=== PATIENT | male | born 1980 | race African-American/Black ===

== ENCOUNTER 2017-12-14 17:59 | Emergency (ER) | payer MEDICAID, SELFPAY ==
[2017-12-14] MEDS ORDERED: Aspirin 81 MG Tab.Chew PO ONE (18:10)
[2017-12-14] MEDS ORDERED: Sodium Chloride 0.9% 1,000 ML IV ONE (18:15)
[2017-12-14] MEDS ORDERED: Ketorolac 30 MG/ML SDV IVPUSH ONE (18:15)
--- NOTE | 2017-12-14 18:15 | EDM.PDOC ---
ED HPI GENERAL MEDICAL PROBLEM - General Chief Complaint: Chest Pain Stated Complaint: UNK ISSUES Time Seen by Provider: 12/14/17 18:09 Source of Information: Reports: Patient History Limitations: Reports: No Limitations - History of Present Illness INITIAL COMMENTS - FREE TEXT/NARRATIVE: HISTORY AND PHYSICAL: History of present illness: Patient reports that at approximately 8:30 this morning he started to develop some midsternal right-sided chest pain. As the day progressed on he states the pain became more bothersome with movement, walking and yawning. He denies any fever, chills, shortness of breath or cough. The chest pain does not radiate, denies any diaphoresis, nausea, vomiting. Denies any GI or symptoms. Review of systems: As per history of present illness and below otherwise all systems reviewed and negative. Past medical history: As per history of present illness and as reviewed below otherwise noncontributory. Surgical history: As per history of present illness and as reviewed below otherwise noncontributory. Social history: No reported history of drug or alcohol abuse. Family history: As per history of present illness and as reviewed below otherwise noncontributory. Physical exam: General: Well-developed and well-nourished 37-year-old -[place] male. Alert and oriented. Nontoxic appearing and in no acute distress. HEENT: Atraumatic, normocephalic, pupils equal and reactive bilaterally, negative for conjunctival pallor or scleral icterus, mucous membranes appear dry , throat clear, neck supple, nontender, trachea midline. No drooling or trismus noted. No meningeal signs Lungs: Clear to auscultation, breath sounds equal bilaterally, chest nontender. Heart: S1S2, regular rate and rhythm without overt murmur Abdomen: Soft, nondistended, nontender. Negative for masses or hepatosplenomegaly. Negative for costovertebral tenderness. Pelvis: Stable nontender. Genitourinary: Deferred. Rectal: Deferred. Skin: Intact, warm, dry. No lesions or rashes noted. Extremities: Atraumatic, negative for cords or calf pain. Neurovascular unremarkable. Neuro: Awake, alert, oriented. Cranial nerves II through XII unremarkable. Cerebellum unremarkable. Motor and sensory unremarkable throughout. Exam nonfocal. Notes: BUN/creatinine and creatinine are slightly elevated which is likely due to being dehydrated. I did give him 1 L of IV fluids. Other worries lab work is unremarkable. EKG shows normal sinus rhythm with a rate of 76. Vital signs are stable. Chest x-ray shows no acute findings. His information was shared with the patient. Patient will be discharged to home with supportive care measures. He voices understanding and is agreeable to plan of care. Denies any further questions at this time. Diagnostics: CBC, CMP, troponin, EKG, one view chest x-ray Therapeutics: Aspirin, Toradol, IV fluids Prescription: None Impression: Nonspecific Chest Pain Plan: 1. Today's lab work, EKG and chest x-ray are normal. 2. Please take Tylenol and/or Ibuprofen for your pain. 3. Increase your oral fluids as you appeared to be dehydrated today. 4. Follow up with your primary caregiver in the next 1-2 days. Return to the ED as needed and as discussed. Definitive disposition and diagnosis as appropriate pending reevaluation and review of above. Onset: Today Chest Pain Score (Numeric/FACES): 8 - Related Data Allergies Allergy/AdvReac Type Severity Reaction Status Date / Time No Known Allergies Allergy Verified 12/14/17 18:15 Home Meds: Home Meds . [No Known Home Meds] 12/14/17 [History] ED ROS GENERAL - Review of Systems Review Of Systems: ROS reveals no pertinent complaints other than HPI. ED EXAM, GENERAL - Physical Exam Exam: See Below (See dictation) Course - Vital Signs Last Recorded V/S: Last Vital Signs Temp 98.1 F 12/14/17 18:13 Pulse 72 12/14/17 18:56 Resp 16 12/14/17 18:56 BP 133/85 12/14/17 18:56 Pulse Ox 98 12/14/17 18:56 - Orders/Labs/Meds Orders: Active Orders 24 hr Category Date Time Status EKG Documentation Completion [RC] STAT Care 12/14/17 18:10 Active Chest 1V Frontal [CR] Stat Exams 12/14/17 18:10 Taken Labs: Laboratory Tests 12/14/17 12/14/17 Range/Units 18:05 18:05 WBC 5.69 (4.0-11.0) K/uL RBC 5.18 (4.50-5.90) M/uL Hgb 14.5 (13.0-17.0) g/dL Hct 42.8 (38.0-50.0) % MCV 82.6 (80.0-98.0) fL MCH 28.0 (27.0-32.0) pg MCHC 33.9 (31.0-37.0) g/dL RDW Std Deviation 40.3 (28.0-62.0) fl RDW Coeff of Pool 13 (11.0-15.0) % Plt Count 227 (150-400) K/uL MPV 10.30 (7.40-12.00) fL Neut % (Auto) 62.4 (48.0-80.0) % Lymph % (Auto) 21.4 (16.0-40.0) % [place] % (Auto) 14.9 (0.0-15.0) % Eos % (Auto) 1.1 (0.0-7.0) % Baso % (Auto) 0.2 (0.0-1.5) % Neut # (Auto) 3.6 (1.4-5.7) K/uL Lymph # (Auto) 1.2 (0.6-2.4) K/uL [place] # (Auto) 0.9 H (0.0-0.8) K/uL Eos # (Auto) 0.1 (0.0-0.7) K/uL Baso # (Auto) 0.0 (0.0-0.1) K/uL Nucleated RBC % 0.0 /100WBC Nucleated RBCs # 0 K/uL Sodium 139 (136-148) mmol/L Potassium 3.9 (3.5-5.1) mmol/L Chloride 104 (98-107) mmol/L Carbon Dioxide 29.6 (21.0-32.0) mmol/L BUN 19 H (7.0-18.0) mg/dL Creatinine 1.4 H (0.8-1.3) mg/dL Est Cr Clr Drug Dosing 68.54 mL/min Estimated GFR (MDRD) > 60.0 ml/min Glucose 93 (74-106) mg/dL Calcium 9.1 (8.5-10.1) mg/dL Total Bilirubin 0.5 (0.2-1.0) mg/dL AST 25 (15-37) IU/L ALT 41 (14-63) IU/L Alkaline Phosphatase 176 H (46-116) U/L Troponin I < 0.050 (0.000-0.056) ng/mL Total Protein 8.0 (6.4-8.2) g/dL Albumin 3.8 (3.4-5.0) g/dL Globulin 4.2 H (2.0-3.5) g/dL Albumin/Globulin Ratio 0.9 L (1.3-2.8) Meds: Medications Discontinued Medications Generic Name Dose Route Start Last Admin Trade Name Cruz PRN Reason Stop Dose Admin Aspirin 324 mg 12/14/17 18:10 12/14/17 18:22 Aspirin PO 12/14/17 18:11 324 mg ONETIME ONE Administration Sodium Chloride 1,000 mls @ 999 mls/hr 12/14/17 18:15 12/14/17 18:25 Normal Saline IV 12/14/17 19:15 999 mls/hr STAT ONE Administration Ketorolac Tromethamine 30 mg 12/14/17 18:15 12/14/17 18:21 Toradol IVPUSH 12/14/17 18:16 30 mg ONETIME ONE Administration Departure - Departure Time of Disposition: 19:28 Disposition: Home, Self-Care 01 Clinical Impression: Nonspecific chest pain Instructions: Nonspecific Chest Pain Forms: ED Department Discharge Additional Instructions: The following information is given to patients seen in the emergency department who are being discharged to home. This information is to outline your options for follow-up care. We provide all patients seen in our emergency department with a follow-up referral. The need for follow-up, as well as the timing and circumstances, are variable depending upon the specifics of your emergency department visit. If you don't have a primary care physician on staff, we will provide you with a referral. We always advise you to contact your personal physician following an emergency department visit to inform them of the circumstance of the visit and for follow-up with them and/or the need for any referrals to a consulting specialist. The emergency department will also refer you to a specialist when appropriate. This referral assures that you have the opportunity for follow-up care with a specialist. All of these measure are taken in an effort to provide you with optimal care, which includes your follow-up. Under all circumstances we always encourage you to contact your private physician who remains a resource for coordinating your care. When calling for follow-up care, please make the office aware that this follow-up is from your recent emergency room visit. If for any reason you are refused follow-up, please contact the [facility] Emergency Department at and asked to speak to the emergency department charge nurse. [facility] [address] [place] [id number] 1. Today's lab work, EKG and chest x-ray are normal. 2. Please take Tylenol and/or Ibuprofen for your pain. 3. Increase your oral fluids as you appeared to be dehydrated today. 4. Follow up with your primary caregiver in the next 1-2 days. Return to the ED as needed and as discussed. - My Orders Last 24 Hours: My Active Orders 12/14/17 18:10 EKG Documentation Completion [RC] STAT Chest 1V Frontal [CR] Stat - Assessment/Plan Last 24 Hours: My Active Orders 12/14/17 18:10 EKG Documentation Completion [RC] STAT Chest 1V Frontal [CR] Stat
[2017-12-14 18:43] LABS: CHLORIDE,CL 104 mmol/L (98-107); SODIUM,NA 139 mmol/L (136-148)
--- NOTE | 2017-12-17 15:08 | CR ---
EXAM DATE: 12/14/17 PATIENT'S AGE: 37 Patient: AYAAN QUIROZ Facility: [place], [place] Site . Site : 1980 Study: XRay Chest [id number] 6:57:38 PM Ordering Physician: Doctor Mcwilliams Final Report: INDICATION: Chest pain and SOB TECHNIQUE: Chest radiograph 1 view COMPARISON: None FINDINGS: Cardiovascular and mediastinum: The heart silhouette is normal in size and morphology. The mediastinum is normal in appearance. Lungs and pleural spaces: Both lungs are unremarkable in appearance. No sign of pleural effusion seen. No pneumothorax is identified. Bones and soft tissues: No significant findings. IMPRESSION: 1. No acute cardiopulmonary disease is seen. Dictated by Fermin Donnelly MD @ 12/14/2017 6:59:28 PM Dictated by: Fermin Donnelly MD @ 12/14/2017 18:59:36 (Electronic Signature) Report Signed by Proxy. GUSTAVO
== END 2017-12-14 19:47 | disposition home or self-care (01) ==
LOC: MW.ED 17:59
DX: R07.89 Other chest pain (principal)
CPT/HCPCS: 36415; 71045; 80053; 84484; 85025; 93005; 96361; 96374; 99285; A9270; J1885; J7040; 99283

== ENCOUNTER 2018-02-02 02:03 | Inpatient (IN) | payer MEDICAID ==
[2018-02-02] MEDS ORDERED: Sodium Chloride 0.9% 2.5 ML Syringe FLUSH PRN ×2 (02:08)
[2018-02-02] MEDS ORDERED: Sodium Chloride 0.9% 10 ML Syringe FLUSH PRN (02:08)
[2018-02-02] MEDS ORDERED: Sodium Chloride 0.9% 1,000 ML IV ONE (02:08)
--- NOTE | 2018-02-02 02:08 | EDM.PDOC ---
ED HPI GENERAL MEDICAL PROBLEM - General Stated Complaint: BACK PAIN Time Seen by Provider: 02/02/18 02:07 Source of Information: Reports: Patient History Limitations: Reports: No Limitations - History of Present Illness INITIAL COMMENTS - FREE TEXT/NARRATIVE: HISTORY AND PHYSICAL: History of present illness: 37-year-old male presenting to emergency department by ambulance secondary to back pain and shortness of breath. Patient states that he has had intermittent back pain since this last Sunday. States that the pain is sharp and has been intermittent. He has been taking ibuprofen and Tylenol for this. Tonight states that pain became more severe and he began to have shortness of breath associated with it so called EMS. Denies any heart palpitations or diaphoresis. Pain is mostly in the left upper back. He denies any history of kidney stones or hematuria. Does admit to last week having some more urgency but no pain with urination. Currently his pain is 5 out of 10 and located primarily in his left flank. He denies any hemoptysis with his shortness of breath. Denies any history of coagulation disorders or blood clots. In general he is healthy and takes no regular medications. He has no known allergies. On exam patient has left CVA tenderness. No other significant abnormalities. CBC, INR, troponin, lipase unremarkable CMP shows mild increase in creatinine to 1.4 normal GFR D-dimer was elevated at 0.95. Spiral CT chest ordered secondary to patient's complaint of shortness of breath as well as chest/back pain CT abdomen showed small left pleural effusion with consolidation of the left lung base most likely secondary to atelectasis but pneumonia not able to be ruled out. They did recommend repeat radiographs as follow-up. In addition there was small bowel in the left flank and epigastrium that was mildly dilated measuring up to 3 cm with a transition point suspected in the left flank. Recommended clinical imaging follow-up to exclude small bowel obstruction. -This is also where the patient is having his pain Incidental finding of an umbilical hernia present containing small bowel without causing obstruction. CT angiogram showed no evidence of PE however there was a left pleural effusion and groundglass atelectasis with patchy consolidation most likely representing atelectasis. Secondary to above I do believe the patient is splinting secondary pain from suspected small bowel obstruction left flank area causing atelectasis. I did call Dr. Alvarado, general surgery, and discussed the case with him. He agreed patient most likely does need further evaluation for small bowel obstruction. He will see the patient this morning. Also called hospitalist, Dr. Dumont, and advised him of the patient and he agreed for admission for suspected small bowel obstruction. Review of systems: As per history of present illness and below otherwise all systems reviewed and negative. Past medical history: As per history of present illness and as reviewed below otherwise noncontributory. Surgical history: As per history of present illness and as reviewed below otherwise noncontributory. Social history: No reported history of drug or alcohol abuse. Family history: As per history of present illness and as reviewed below otherwise noncontributory. Physical exam: HEENT: Atraumatic, normocephalic, pupils reactive, negative for conjunctival pallor or scleral icterus, mucous membranes moist, throat clear, neck supple, nontender, trachea midline. Lungs: Clear to auscultation, breath sounds equal bilaterally, chest nontender. Heart: S1S2, regular, negative for clicks, rubs, or JVD. Abdomen: Soft, nondistended, nontender. Negative for masses or hepatosplenomegaly. Left costovertebral tenderness. Pelvis: Stable nontender. Genitourinary: Deferred. Rectal: Deferred. Extremities: Atraumatic, negative for cords or calf pain. Neurovascular unremarkable. Neuro: Awake, alert, oriented. Cranial nerves II through XII unremarkable. Cerebellum unremarkable. Motor and sensory unremarkable throughout. Exam nonfocal. Diagnostics: CBC, CMP, INR, d-dimer, chest x-ray, EKG, CT abdomen and pelvis, spiral CT chest Therapeutics: 1 L normal saline, 2 mg IV morphine 1, nothing by mouth Impression: CVA tenderness left Shortness of breath Suspected small bowel obstruction Plan: Please see above H&P. Patient was admitted for suspected small bowel obstruction. Definitive disposition and diagnosis as appropriate pending reevaluation and review of above. left flank Pain Score (Numeric/FACES): 10 - Related Data Allergies Allergy/AdvReac Type Severity Reaction Status Date / Time No Known Allergies Allergy Verified 02/02/18 02:11 Home Meds: Home Meds . [No Known Home Meds] 12/14/17 [History] Past Medical History - Past Health History Medical/Surgical History: Denies Medical/Surgical History - Past Surgical History Musculoskeletal Surgical History: Reports: Other (See Below) Other Musculoskeletal Surgeries/Procedures:: left arm surgery Social & Family History - Family History Family Medical History: Noncontributory - Caffeine Use Caffeine Use: Reports: None ED ROS GENERAL - Review of Systems Review Of Systems: ROS reveals no pertinent complaints other than HPI. ED EXAM, GENERAL - Physical Exam Exam: See Below Course - Vital Signs Last Recorded V/S: Last Vital Signs Temp 98.8 F 02/02/18 02:11 Pulse 67 02/02/18 04:51 Resp 14 02/02/18 04:51 BP 146/92 H 02/02/18 04:51 Pulse Ox 98 02/02/18 04:51 - Orders/Labs/Meds Orders: Active Orders 24 hr Category Date Time Status Admission Status [Patient Status] [ADT] Stat ADT 02/02/18 04:38 Active EKG Documentation Completion [RC] STAT Care 02/02/18 02:08 Active Abdomen Pelvis wo Cont [CT] Stat Exams 02/02/18 02:51 Taken Chest 1V Frontal [CR] Stat Exams 02/02/18 02:08 Taken Chest PE [Ang Chest] [CT] Stat Exams 02/02/18 03:19 Taken CULTURE URINE [RM] Stat Lab 02/02/18 02:09 Received Sodium Chloride 0.9% [Saline Flush] Med 02/02/18 02:08 Active 10 ml FLUSH ASDIRECTED PRN Sodium Chloride 0.9% [Saline Flush] Med 02/02/18 02:08 Active 2.5 ml FLUSH ASDIRECTED PRN Sodium Chloride 0.9% [Saline Flush] Med 02/02/18 02:08 Active 2.5 ml FLUSH ASDIRECTED PRN Saline Lock Insert [OM.PC] Stat Oth 02/02/18 02:08 Ordered Medication Orders Sodium Chloride (Saline Flush) 2.5 ml FLUSH ASDIRECTED PRN PRN Reason: Keep Vein Open Last Admin: 02/02/18 02:35 Dose: 2.5 ml Sodium Chloride (Saline Flush) 10 ml FLUSH ASDIRECTED PRN PRN Reason: Keep Vein Open Last Admin: 02/02/18 02:35 Dose: 10 ml Sodium Chloride (Saline Flush) 2.5 ml FLUSH ASDIRECTED PRN PRN Reason: Keep Vein Open Last Admin: 02/02/18 02:35 Dose: 2.5 ml Labs: Laboratory Tests 02/02/18 02/02/18 02/02/18 Range/Units 02:09 02:17 02:17 WBC 5.10 (4.0-11.0) K/uL RBC 5.20 (4.50-5.90) M/uL Hgb 14.6 (13.0-17.0) g/dL Hct 42.7 (38.0-50.0) % MCV 82.1 (80.0-98.0) fL MCH 28.1 (27.0-32.0) pg MCHC 34.2 (31.0-37.0) g/dL RDW Std Deviation 40.7 (28.0-62.0) fl RDW Coeff of Pool 14 (11.0-15.0) % Plt Count 203 (150-400) K/uL MPV 10.10 (7.40-12.00) fL Neut % (Auto) 49.6 (48.0-80.0) % Lymph % (Auto) 40.0 (16.0-40.0) % [place] % (Auto) 8.0 (0.0-15.0) % Eos % (Auto) 2.0 (0.0-7.0) % Baso % (Auto) 0.4 (0.0-1.5) % Neut # (Auto) 2.5 (1.4-5.7) K/uL Lymph # (Auto) 2.0 (0.6-2.4) K/uL [place] # (Auto) 0.4 (0.0-0.8) K/uL Eos # (Auto) 0.1 (0.0-0.7) K/uL Baso # (Auto) 0.0 (0.0-0.1) K/uL Nucleated RBC % 0.0 /100WBC Nucleated RBCs # 0 K/uL INR 1.01 D-Dimer, Quantitative 0.95 H (0.0-0.52) mg/LFEU Sodium (136-148) mmol/L Potassium (3.5-5.1) mmol/L Chloride (98-107) mmol/L Carbon Dioxide (21.0-32.0) mmol/L BUN (7.0-18.0) mg/dL Creatinine (0.8-1.3) mg/dL Est Cr Clr Drug Dosing mL/min Estimated GFR (MDRD) ml/min Glucose (74-106) mg/dL Calcium (8.5-10.1) mg/dL Total Bilirubin (0.2-1.0) mg/dL AST (15-37) IU/L ALT (14-63) IU/L Alkaline Phosphatase (46-116) U/L Troponin I (0.000-0.056) ng/mL Total Protein (6.4-8.2) g/dL Albumin (3.4-5.0) g/dL Globulin (2.0-3.5) g/dL Albumin/Globulin Ratio (1.3-2.8) Lipase (73-393) U/L Urine Color YELLOW Urine Appearance CLEAR Urine pH 5.5 (5.0-8.0) Ur Specific [place] <= 1.005 (1.001-1.035) Urine Protein NEGATIVE (NEGATIVE) mg/dL Urine Glucose (UA) NEGATIVE (NEGATIVE) mg/dL Urine Ketones NEGATIVE (NEGATIVE) mg/dL Urine Occult Blood NEGATIVE (NEGATIVE) Urine Nitrite NEGATIVE (NEGATIVE) Urine Bilirubin NEGATIVE (NEGATIVE) Urine Urobilinogen 0.2 (<2.0) EU/dL Ur Leukocyte Esterase NEGATIVE (NEGATIVE) Urine RBC 0-1 (0-2/HPF) Urine WBC NONE SEEN (0-5/HPF) Ur Epithelial Cells RARE (NONE-FEW) Urine Bacteria RARE (NEGATIVE) 02/02/18 Range/Units 02:17 WBC (4.0-11.0) K/uL RBC (4.50-5.90) M/uL Hgb (13.0-17.0) g/dL Hct (38.0-50.0) % MCV (80.0-98.0) fL MCH (27.0-32.0) pg MCHC (31.0-37.0) g/dL RDW Std Deviation (28.0-62.0) fl RDW Coeff of Pool (11.0-15.0) % Plt Count (150-400) K/uL MPV (7.40-12.00) fL Neut % (Auto) (48.0-80.0) % Lymph % (Auto) (16.0-40.0) % [place] % (Auto) (0.0-15.0) % Eos % (Auto) (0.0-7.0) % Baso % (Auto) (0.0-1.5) % Neut # (Auto) (1.4-5.7) K/uL Lymph # (Auto) (0.6-2.4) K/uL [place] # (Auto) (0.0-0.8) K/uL Eos # (Auto) (0.0-0.7) K/uL Baso # (Auto) (0.0-0.1) K/uL Nucleated RBC % /100WBC Nucleated RBCs # K/uL INR D-Dimer, Quantitative (0.0-0.52) mg/LFEU Sodium 139 (136-148) mmol/L Potassium 3.9 (3.5-5.1) mmol/L Chloride 102 (98-107) mmol/L Carbon Dioxide 28.9 (21.0-32.0) mmol/L BUN 11 (7.0-18.0) mg/dL Creatinine 1.4 H (0.8-1.3) mg/dL Est Cr Clr Drug Dosing 68.54 mL/min Estimated GFR (MDRD) > 60.0 ml/min Glucose 110 H (74-106) mg/dL Calcium 9.2 (8.5-10.1) mg/dL Total Bilirubin 0.7 (0.2-1.0) mg/dL AST 11 L (15-37) IU/L ALT 25 (14-63) IU/L Alkaline Phosphatase 130 H (46-116) U/L Troponin I < 0.050 (0.000-0.056) ng/mL Total Protein 8.0 (6.4-8.2) g/dL Albumin 4.0 (3.4-5.0) g/dL Globulin 4.0 H (2.0-3.5) g/dL Albumin/Globulin Ratio 1.0 L (1.3-2.8) Lipase 296 (73-393) U/L Urine Color Urine Appearance Urine pH (5.0-8.0) Ur Specific [place] (1.001-1.035) Urine Protein (NEGATIVE) mg/dL Urine Glucose (UA) (NEGATIVE) mg/dL Urine Ketones (NEGATIVE) mg/dL Urine Occult Blood (NEGATIVE) Urine Nitrite (NEGATIVE) Urine Bilirubin (NEGATIVE) Urine Urobilinogen (<2.0) EU/dL Ur Leukocyte Esterase (NEGATIVE) Urine RBC (0-2/HPF) Urine WBC (0-5/HPF) Ur Epithelial Cells (NONE-FEW) Urine Bacteria (NEGATIVE) Meds: Medications Generic Name Dose Route Start Last Admin Trade Name Cruz PRN Reason Stop Dose Admin Sodium Chloride 2.5 ml 02/02/18 02:08 02/02/18 02:35 Saline Flush FLUSH 2.5 ml ASDIRECTED PRN Administration Keep Vein Open Sodium Chloride 10 ml 02/02/18 02:08 02/02/18 02:35 Saline Flush FLUSH 10 ml ASDIRECTED PRN Administration Keep Vein Open Sodium Chloride 2.5 ml 02/02/18 02:08 02/02/18 02:35 Saline Flush FLUSH 2.5 ml ASDIRECTED PRN Administration Keep Vein Open Discontinued Medications Generic Name Dose Route Start Last Admin Trade Name Cruz PRN Reason Stop Dose Admin Sodium Chloride 1,000 mls @ 999 mls/hr 02/02/18 02:08 02/02/18 02:34 Normal Saline IV 02/02/18 03:08 999 mls/hr BOLUS ONE Administration Iopamidol 50 ml 02/02/18 04:03 02/02/18 04:04 Isovue Multipack-370 (76%) IVPUSH 02/02/18 04:04 50 ml ONETIME ONE Administration Morphine Sulfate 2 mg 02/02/18 03:19 02/02/18 03:24 Morphine IVPUSH 02/02/18 03:20 2 mg ONETIME ONE Administration Departure - Departure Time of Disposition: 05:06 Disposition: Admitted As Inpatient 64 Condition: Fair Clinical Impression: CVA tenderness, Small bowel obstruction, Nausea without vomiting - Discharge Information Referrals: PCP,None [Primary Care Provider] - - My Orders Last 24 Hours: My Active Orders 02/02/18 02:08 EKG Documentation Completion [RC] STAT Chest 1V Frontal [CR] Stat Sodium Chloride 0.9% [Saline Flush] 10 ml FLUSH ASDIRECTED PRN Sodium Chloride 0.9% [Saline Flush] 2.5 ml FLUSH ASDIRECTED PRN Sodium Chloride 0.9% [Saline Flush] 2.5 ml FLUSH ASDIRECTED PRN Saline Lock Insert [OM.PC] Stat 02/02/18 02:09 CULTURE URINE [RM] Stat 02/02/18 02:51 Abdomen Pelvis wo Cont [CT] Stat 02/02/18 03:19 Chest PE [Ang Chest] [CT] Stat 02/02/18 04:38 Admission Status [Patient Status] [ADT] Stat - Assessment/Plan Last 24 Hours: My Active Orders 02/02/18 02:08 EKG Documentation Completion [RC] STAT Chest 1V Frontal [CR] Stat Sodium Chloride 0.9% [Saline Flush] 10 ml FLUSH ASDIRECTED PRN Sodium Chloride 0.9% [Saline Flush] 2.5 ml FLUSH ASDIRECTED PRN Sodium Chloride 0.9% [Saline Flush] 2.5 ml FLUSH ASDIRECTED PRN Saline Lock Insert [OM.PC] Stat 02/02/18 02:09 CULTURE URINE [RM] Stat 02/02/18 02:51 Abdomen Pelvis wo Cont [CT] Stat 02/02/18 03:19 Chest PE [Ang Chest] [CT] Stat 02/02/18 04:38 Admission Status [Patient Status] [ADT] Stat
[2018-02-02 02:47] LABS: CHLORIDE,CL 102 mmol/L (98-107); SODIUM,NA 139 mmol/L (136-148)
[2018-02-02] MEDS ORDERED: Morphine 2 MG/ML Syringe IVPUSH ONE (03:19)
[2018-02-02] MEDS ORDERED: Iopamidol 755 MG/ML 200 ML Multipack Bottle IVPUSH ONE (04:03)
[2018-02-02] MEDS ORDERED: Morphine 2 MG/ML Syringe IVPUSH PRN (08:30)
[2018-02-02] MEDS ORDERED: Ondansetron 4 MG Tab.DIS PO PRN (08:30)
--- NOTE | 2018-02-02 08:58 | PCM.HP ---
H&P History of Present Illness - General Date of Service: 02/02/18 Admit Problem/Dx: Admission Diagnosis/Problem Admission Diagnosis/Problem Small bowel obstruction Source of Information: Patient, Family History Limitations: Reports: No Limitations - History of Present Illness Initial Comments - Free Text/Narative: The patient is an otherwise healthy 37-year-old gentleman who has presented to the emergency department early this morning with a complaint of left-sided flank pain and abdominal pain. The patient says that he has had the pain for approximately one week. The patient also says that the pain is crampy in nature and does not radiate. The patient also denies diarrhea or constipation however he has been able to pass gas. The patient has no nausea or vomiting. He has been in good health up to the present time and he does not take any medications chronically. They have been no specific aggravating or relieving factors. Onset of Symptoms: Reports: Gradual Duration of Symptoms: Reports: Day(s):, Intermittent Location: Reports: Abdomen Quality: Reports: Dull, Other (Cramping) Severity: Moderate Improves with: Reports: Medication Worsens with: Reports: None Associated Symptoms: Reports: No Other Symptoms left flank Pain Score (Numeric/FACES): 10 - Related Data Allergies/Adverse Reactions: Allergies Allergy/AdvReac Type Severity Reaction Status Date / Time No Known Allergies Allergy Verified 02/02/18 02:11 Home Medications: Home Meds . [No Known Home Meds] 12/14/17 [History] Past Medical History - Past Health History Medical/Surgical History: Denies Medical/Surgical History HEENT History: Reports: None Cardiovascular History: Reports: None Respiratory History: Reports: None Gastrointestinal History: Reports: None Genitourinary History: Reports: None Musculoskeletal History: Reports: None Neurological History: Reports: None Psychiatric History: Reports: None Endocrine/Metabolic History: Reports: None Hematologic History: Reports: None Oncologic (Cancer) History: Reports: None Dermatologic History: Reports: None - Infectious Disease History Infectious Disease History: Reports: None - Past Surgical History Musculoskeletal Surgical History: Reports: Other (See Below) Other Musculoskeletal Surgeries/Procedures:: left arm surgery Social & Family History - Family History Family Medical History: Noncontributory - Tobacco Use Smoking Status *Q: Never Smoker - Caffeine Use Caffeine Use: Reports: None - Recreational Drug Use Recreational Drug Use: No - Living Situation & Occupation Living situation: Reports: , with Spouse Occupation: Employed H&P Review of Systems - Review of Systems: Review Of Systems: See Below General: Reports: Decreased Appetite HEENT: Reports: No Symptoms Pulmonary: Reports: Shortness of Breath Cardiovascular: Reports: No Symptoms Gastrointestinal: Reports: Abdominal Pain, Decreased Appetite Genitourinary: Reports: No Symptoms Musculoskeletal: Reports: No Symptoms Skin: Reports: No Symptoms Psychiatric: Reports: No Symptoms Neurological: Reports: No Symptoms Hematologic/Lymphatic: Reports: No Symptoms Immunologic: Reports: No Symptoms Exam - Exam Exam: See Below - Vital Signs Vital Signs: Last Vital Signs Temp 36.4 C 02/02/18 07:16 Pulse 60 02/02/18 07:16 Resp 14 02/02/18 07:16 BP 140/83 02/02/18 07:16 Pulse Ox 98 02/02/18 07:16 Weight: 80.739 kg - Exam Quality Assessment: No: Supplemental Oxygen General: Alert, Oriented, Cooperative, Mild Distress HEENT: Conjunctiva Clear, EACs Clear, EOMI, Mucosa Moist & [place], Nares Patent, Pupils Equal, Pupils Reactive Neck: Supple, Trachea Midline. No: Lymphadenopathy, Thyromegaly Lungs: Clear to Auscultation, Normal Respiratory Effort Cardiovascular: Regular Rate, Regular Rhythm, Normal S1, Normal S2 GI/Abdominal Exam: Normal Bowel Sounds, Soft, Non-Tender, No Organomegaly, No Distention, No Mass, Hernia (Umbilical, asymptomatic). No: Guarding, Rigid, Rebound (Male) Exam: Deferred Rectal (Males) Exam: Deferred Back Exam: Normal Inspection, Full Range of Motion Extremities: Normal Inspection, Normal Range of Motion, Non-Tender, No Pedal Edema Skin: Warm, Dry, Intact Neurological: Cranial Nerves Intact Neuro Extensive - Mental Status: Alert, Oriented x3, Normal Mood/Affect Neuro Extensive - Motor, Sensory, Reflexes: CN II-XII Intact, Normal Gait Psychiatric: Alert, Normal Affect, Normal Mood - Patient Data Lab Results Last 24 hrs: Laboratory Results - last 24 hr 02/02/18 02/02/18 02/02/18 Range/Units 02:09 02:17 02:17 WBC 5.10 (4.0-11.0) K/uL RBC 5.20 (4.50-5.90) M/uL Hgb 14.6 (13.0-17.0) g/dL Hct 42.7 (38.0-50.0) % MCV 82.1 (80.0-98.0) fL MCH 28.1 (27.0-32.0) pg MCHC 34.2 (31.0-37.0) g/dL RDW Std Deviation 40.7 (28.0-62.0) fl RDW Coeff of Pool 14 (11.0-15.0) % Plt Count 203 (150-400) K/uL MPV 10.10 (7.40-12.00) fL Neut % (Auto) 49.6 (48.0-80.0) % Lymph % (Auto) 40.0 (16.0-40.0) % [place] % (Auto) 8.0 (0.0-15.0) % Eos % (Auto) 2.0 (0.0-7.0) % Baso % (Auto) 0.4 (0.0-1.5) % Neut # (Auto) 2.5 (1.4-5.7) K/uL Lymph # (Auto) 2.0 (0.6-2.4) K/uL [place] # (Auto) 0.4 (0.0-0.8) K/uL Eos # (Auto) 0.1 (0.0-0.7) K/uL Baso # (Auto) 0.0 (0.0-0.1) K/uL Nucleated RBC % 0.0 /100WBC Nucleated RBCs # 0 K/uL INR 1.01 D-Dimer, Quantitative 0.95 H (0.0-0.52) mg/LFEU Sodium (136-148) mmol/L Potassium (3.5-5.1) mmol/L Chloride (98-107) mmol/L Carbon Dioxide (21.0-32.0) mmol/L BUN (7.0-18.0) mg/dL Creatinine (0.8-1.3) mg/dL Est Cr Clr Drug Dosing mL/min Estimated GFR (MDRD) ml/min Glucose (74-106) mg/dL Calcium (8.5-10.1) mg/dL Total Bilirubin (0.2-1.0) mg/dL AST (15-37) IU/L ALT (14-63) IU/L Alkaline Phosphatase (46-116) U/L Troponin I (0.000-0.056) ng/mL Total Protein (6.4-8.2) g/dL Albumin (3.4-5.0) g/dL Globulin (2.0-3.5) g/dL Albumin/Globulin Ratio (1.3-2.8) Lipase (73-393) U/L Urine Color YELLOW Urine Appearance CLEAR Urine pH 5.5 (5.0-8.0) Ur Specific [place] <= 1.005 (1.001-1.035) Urine Protein NEGATIVE (NEGATIVE) mg/dL Urine Glucose (UA) NEGATIVE (NEGATIVE) mg/dL Urine Ketones NEGATIVE (NEGATIVE) mg/dL Urine Occult Blood NEGATIVE (NEGATIVE) Urine Nitrite NEGATIVE (NEGATIVE) Urine Bilirubin NEGATIVE (NEGATIVE) Urine Urobilinogen 0.2 (<2.0) EU/dL Ur Leukocyte Esterase NEGATIVE (NEGATIVE) Urine RBC 0-1 (0-2/HPF) Urine WBC NONE SEEN (0-5/HPF) Ur Epithelial Cells RARE (NONE-FEW) Urine Bacteria RARE (NEGATIVE) 02/02/18 Range/Units 02:17 WBC (4.0-11.0) K/uL RBC (4.50-5.90) M/uL Hgb (13.0-17.0) g/dL Hct (38.0-50.0) % MCV (80.0-98.0) fL MCH (27.0-32.0) pg MCHC (31.0-37.0) g/dL RDW Std Deviation (28.0-62.0) fl RDW Coeff of Pool (11.0-15.0) % Plt Count (150-400) K/uL MPV (7.40-12.00) fL Neut % (Auto) (48.0-80.0) % Lymph % (Auto) (16.0-40.0) % [place] % (Auto) (0.0-15.0) % Eos % (Auto) (0.0-7.0) % Baso % (Auto) (0.0-1.5) % Neut # (Auto) (1.4-5.7) K/uL Lymph # (Auto) (0.6-2.4) K/uL [place] # (Auto) (0.0-0.8) K/uL Eos # (Auto) (0.0-0.7) K/uL Baso # (Auto) (0.0-0.1) K/uL Nucleated RBC % /100WBC Nucleated RBCs # K/uL INR D-Dimer, Quantitative (0.0-0.52) mg/LFEU Sodium 139 (136-148) mmol/L Potassium 3.9 (3.5-5.1) mmol/L Chloride 102 (98-107) mmol/L Carbon Dioxide 28.9 (21.0-32.0) mmol/L BUN 11 (7.0-18.0) mg/dL Creatinine 1.4 H (0.8-1.3) mg/dL Est Cr Clr Drug Dosing 68.54 mL/min Estimated GFR (MDRD) > 60.0 ml/min Glucose 110 H (74-106) mg/dL Calcium 9.2 (8.5-10.1) mg/dL Total Bilirubin 0.7 (0.2-1.0) mg/dL AST 11 L (15-37) IU/L ALT 25 (14-63) IU/L Alkaline Phosphatase 130 H (46-116) U/L Troponin I < 0.050 (0.000-0.056) ng/mL Total Protein 8.0 (6.4-8.2) g/dL Albumin 4.0 (3.4-5.0) g/dL Globulin 4.0 H (2.0-3.5) g/dL Albumin/Globulin Ratio 1.0 L (1.3-2.8) Lipase 296 (73-393) U/L Urine Color Urine Appearance Urine pH (5.0-8.0) Ur Specific [place] (1.001-1.035) Urine Protein (NEGATIVE) mg/dL Urine Glucose (UA) (NEGATIVE) mg/dL Urine Ketones (NEGATIVE) mg/dL Urine Occult Blood (NEGATIVE) Urine Nitrite (NEGATIVE) Urine Bilirubin (NEGATIVE) Urine Urobilinogen (<2.0) EU/dL Ur Leukocyte Esterase (NEGATIVE) Urine RBC (0-2/HPF) Urine WBC (0-5/HPF) Ur Epithelial Cells (NONE-FEW) Urine Bacteria (NEGATIVE) Result Diagrams: 02/02/18 02:17 02/02/18 02:17 - Problem List (1) Small bowel obstruction, partial SNOMED Code(s): 136557720 ICD Code: K56.600 - PARTIAL INTESTINAL OBSTRUCTION, UNSPECIFIED TO CAUSE Status: Acute Priority: High Current Visit: Yes (2) Nausea without vomiting SNOMED Code(s): 887834827, 183932338 ICD Code: R11.0 - NAUSEA Status: Acute Priority: Medium Current Visit: Yes (3) Nonspecific chest pain SNOMED Code(s): 04727738 ICD Code: R07.9 - CHEST PAIN, UNSPECIFIED Status: Acute Priority: High Current Visit: Yes Problem List Initiated/Reviewed/Updated: Yes Orders Last 24hrs: Active Orders 24 hr Category Date Time Status Patient Status [ADT] Routine ADT 02/02/18 08:30 Active EKG Documentation Completion [RC] STAT Care 02/02/18 02:08 Active Notify Provider Consults [RC] ASDIRECTED Care 02/02/18 08:33 Active Oxygen Therapy [RC] PRN Care 02/02/18 08:30 Active Up ad Mary [RC] ASDIRECTED Care 02/02/18 08:30 Active VTE/DVT Education [RC] PER UNIT ROUTINE Care 02/02/18 08:30 Active Vital Signs [RC] Q4H Care 02/02/18 08:30 Active Consult to Physician [CONS] Routine Cons 02/02/18 08:30 Active Nothing per Oral Now Diet [DIET] Diet 02/02/18 Breakfast Active Abdomen 1V Flat [CR] AM Exams 02/03/18 05:11 Ordered Abdomen Pelvis wo Cont [CT] Stat Exams 02/02/18 02:51 Taken Chest 1V Frontal [CR] Stat Exams 02/02/18 02:08 Taken Chest PE [Ang Chest] [CT] Stat Exams 02/02/18 03:19 Taken CBC WITH AUTO DIFF [HEME] AM Lab 02/03/18 05:11 Ordered COMPREHENSIVE METABOLIC PN,CMP [CHEM] AM Lab 02/03/18 05:11 Ordered CULTURE URINE [RM] Stat Lab 02/02/18 02:09 Received Enoxaparin [Lovenox] Med 02/02/18 08:30 Active 40 mg SUBCUT Q24H Morphine Med 02/02/18 08:30 Active 2 mg IVPUSH Q2H PRN Ondansetron [Zofran ODT] Med 02/02/18 08:30 Active 4 mg PO Q6H PRN Sodium Chloride 0.9% [Normal Saline] 1,000 ml Med 02/02/18 08:30 Active IV ASDIRECTED Sodium Chloride 0.9% [Saline Flush] Med 02/02/18 02:08 Active 10 ml FLUSH ASDIRECTED PRN Sodium Chloride 0.9% [Saline Flush] Med 02/02/18 02:08 Active 2.5 ml FLUSH ASDIRECTED PRN Sodium Chloride 0.9% [Saline Flush] Med 02/02/18 02:08 Active 2.5 ml FLUSH ASDIRECTED PRN NG [Nasogastric Orogastric Tube Insertion] [OM.PC] Ot 02/02/18 08:36 Ordered Routine Saline Lock Insert [OM.PC] Stat Ot 02/02/18 02:08 Ordered Resuscitation Status Routine Resus Stat 02/02/18 08:30 Ordered Medication Orders Enoxaparin Sodium (Lovenox) 40 mg SUBCUT Q24H SUPRIYA Sodium Chloride (Normal Saline) 1,000 mls @ 125 mls/hr IV ASDIRECTED SUPRIYA Morphine Sulfate (Morphine) 2 mg IVPUSH Q2H PRN PRN Reason: Pain (severe 7-10) Stop: 02/03/18 08:32 Ondansetron HCl (Zofran Odt) 4 mg PO Q6H PRN PRN Reason: nausea, able to take PO Sodium Chloride (Saline Flush) 2.5 ml FLUSH ASDIRECTED PRN PRN Reason: Keep Vein Open Last Admin: 02/02/18 02:35 Dose: 2.5 ml Sodium Chloride (Saline Flush) 10 ml FLUSH ASDIRECTED PRN PRN Reason: Keep Vein Open Last Admin: 02/02/18 02:35 Dose: 10 ml Sodium Chloride (Saline Flush) 2.5 ml FLUSH ASDIRECTED PRN PRN Reason: Keep Vein Open Last Admin: 02/02/18 02:35 Dose: 2.5 ml Assessment/Plan Comment:: The patient is a 37-year-old gentleman who has been healthy up to this present illness. CT scan has been suggestive of small bowel obstruction however, the patient has been able to pass flatus therefore this is likely a partial small bowel obstruction. The patient's abdominal examination today is also completely benign. NG tube previously order has been discontinued. The patient will be started on clear liquids. I have consulted surgeon. I suspect that the patient' s chest pain is related to small bowel obstruction and he has been unable to take a deep breath. Incentive spirometry has been ordered. This should resolve spontaneously. The patient should be appropriate for discharge possibly tomorrow if he is asymptomatic. We'll consider Gastrografin small bowel follow- through if necessary. This can also be done as an outpatient if necessary. The patient has been encouraged to ambulate. Repeat laboratory tests been ordered for the morning. Repeat abdominal x-ray has also been ordered for the morning.
[2018-02-02] MEDS: Sodium Chloride 0.9% 1,000 ML IV SCH ×2 (09:23→17:16)
[2018-02-02] MEDS: Enoxaparin 40 MG/0.4 ML Syringe SUBCUT SCH (09:27)
--- NOTE | 2018-02-02 09:28 | PCM.CONS ---
H&P History of Present Illness - General Date of Service: 02/02/18 Admit Problem/Dx: Admission Diagnosis/Problem Admission Diagnosis/Problem Small bowel obstruction Source of Information: Patient, Family History Limitations: Reports: No Limitations - History of Present Illness Symptom Onset Date: 02/01/18 Duration of Symptoms: Reports: Hour(s):, Chronic, Recurring Location: Reports: Abdomen Quality: Reports: Pressure, Throbbing Severity: Moderate Improves with: Reports: Rest Worsens with: Reports: None Context: Denies: Sick Contact, Activity/Exercise, Lifting, Exertion, Rest, Trauma Associated Symptoms: Reports: Loss of Appetite, Nausea/Vomiting. Denies: Confusion, Diaphoresis, Fever/Chills left flank Pain Score (Numeric/FACES): 10 - Related Data Allergies/Adverse Reactions: Allergies Allergy/AdvReac Type Severity Reaction Status Date / Time No Known Allergies Allergy Verified 02/02/18 02:11 Home Medications: Home Meds . [No Known Home Meds] 12/14/17 [History] Past Medical History - Past Health History Medical/Surgical History: Denies Medical/Surgical History HEENT History: Reports: None Cardiovascular History: Reports: None Respiratory History: Reports: None Gastrointestinal History: Reports: None Genitourinary History: Reports: None Neurological History: Reports: None Psychiatric History: Reports: None Endocrine/Metabolic History: Reports: None Hematologic History: Reports: None Oncologic (Cancer) History: Reports: None Dermatologic History: Reports: None - Infectious Disease History Infectious Disease History: Reports: None - Past Surgical History Musculoskeletal Surgical History: Reports: Other (See Below) Other Musculoskeletal Surgeries/Procedures:: left arm surgery Social & Family History - Family History Family Medical History: Noncontributory - Tobacco Use Smoking Status *Q: Never Smoker - Caffeine Use Caffeine Use: Reports: None - Recreational Drug Use Recreational Drug Use: No H&P Review of Systems - Review of Systems: Review Of Systems: See Below General: Denies: Fever, Chills, Diaphoresis HEENT: Reports: No Symptoms Pulmonary: Denies: Shortness of Breath, Wheezing, Cough, Hemoptysis Cardiovascular: Denies: Chest Pain Gastrointestinal: Reports: Abdominal Pain, Decreased Appetite, Flatus, Nausea. Denies: Anorexia, Black Stool, Bloody Stool, Constipation, Diarrhea, Distension , Vomiting Genitourinary: Reports: No Symptoms Musculoskeletal: Reports: No Symptoms Skin: Reports: No Symptoms Psychiatric: Reports: No Symptoms Neurological: Reports: No Symptoms Hematologic/Lymphatic: Reports: No Symptoms Immunologic: Reports: No Symptoms Exam - Exam Exam: See Below - Vital Signs Vital Signs: Last Vital Signs Temp 97.6 F 02/02/18 07:16 Pulse 60 02/02/18 07:16 Resp 14 02/02/18 07:16 BP 140/83 02/02/18 07:16 Pulse Ox 98 02/02/18 07:16 Weight: 178 lb - Exam Quality Assessment: No: Supplemental Oxygen, Central Line/PICC, Urinary Catheter General: Alert, Oriented, Cooperative HEENT: Conjunctiva Clear, EACs Clear. No: Scleral Icterus Neck: Supple, Trachea Midline Lungs: Clear to Auscultation, Normal Respiratory Effort. No: Decreased Breath Sounds, Crackles, Rales Cardiovascular: Regular Rate, Regular Rhythm, Normal S1, Normal S2 GI/Abdominal Exam: Normal Bowel Sounds, Soft, Non-Tender, No Distention, No Abnormal Bruit, No Mass, Other (reducible umbilical hernia) (Male) Exam: No Hernia, Normal Inspection Rectal (Males) Exam: Deferred Back Exam: Normal Inspection, Full Range of Motion Extremities: Normal Inspection, Normal Range of Motion, No Pedal Edema Peripheral Pulses: 4+: Posterior Tibial (L), Posterior Tibial (R), Dorsalis Pedis (L), Dorsalis Pedis (R) Skin: Warm, Dry, Intact Neuro Extensive - Mental Status: Alert, Oriented x3, Normal Mood/Affect, Normal Cognition Psychiatric: Alert, Normal Affect, Normal Mood - Patient Data Lab Results Last 24 hrs: Laboratory Results - last 24 hr 02/02/18 02/02/18 02/02/18 Range/Units 02:09 02:17 02:17 WBC 5.10 (4.0-11.0) K/uL RBC 5.20 (4.50-5.90) M/uL Hgb 14.6 (13.0-17.0) g/dL Hct 42.7 (38.0-50.0) % MCV 82.1 (80.0-98.0) fL MCH 28.1 (27.0-32.0) pg MCHC 34.2 (31.0-37.0) g/dL RDW Std Deviation 40.7 (28.0-62.0) fl RDW Coeff of Pool 14 (11.0-15.0) % Plt Count 203 (150-400) K/uL MPV 10.10 (7.40-12.00) fL Neut % (Auto) 49.6 (48.0-80.0) % Lymph % (Auto) 40.0 (16.0-40.0) % [place] % (Auto) 8.0 (0.0-15.0) % Eos % (Auto) 2.0 (0.0-7.0) % Baso % (Auto) 0.4 (0.0-1.5) % Neut # (Auto) 2.5 (1.4-5.7) K/uL Lymph # (Auto) 2.0 (0.6-2.4) K/uL [place] # (Auto) 0.4 (0.0-0.8) K/uL Eos # (Auto) 0.1 (0.0-0.7) K/uL Baso # (Auto) 0.0 (0.0-0.1) K/uL Nucleated RBC % 0.0 /100WBC Nucleated RBCs # 0 K/uL INR 1.01 D-Dimer, Quantitative 0.95 H (0.0-0.52) mg/LFEU Sodium (136-148) mmol/L Potassium (3.5-5.1) mmol/L Chloride (98-107) mmol/L Carbon Dioxide (21.0-32.0) mmol/L BUN (7.0-18.0) mg/dL Creatinine (0.8-1.3) mg/dL Est Cr Clr Drug Dosing mL/min Estimated GFR (MDRD) ml/min Glucose (74-106) mg/dL Calcium (8.5-10.1) mg/dL Total Bilirubin (0.2-1.0) mg/dL AST (15-37) IU/L ALT (14-63) IU/L Alkaline Phosphatase (46-116) U/L Troponin I (0.000-0.056) ng/mL Total Protein (6.4-8.2) g/dL Albumin (3.4-5.0) g/dL Globulin (2.0-3.5) g/dL Albumin/Globulin Ratio (1.3-2.8) Lipase (73-393) U/L Urine Color YELLOW Urine Appearance CLEAR Urine pH 5.5 (5.0-8.0) Ur Specific [place] <= 1.005 (1.001-1.035) Urine Protein NEGATIVE (NEGATIVE) mg/dL Urine Glucose (UA) NEGATIVE (NEGATIVE) mg/dL Urine Ketones NEGATIVE (NEGATIVE) mg/dL Urine Occult Blood NEGATIVE (NEGATIVE) Urine Nitrite NEGATIVE (NEGATIVE) Urine Bilirubin NEGATIVE (NEGATIVE) Urine Urobilinogen 0.2 (<2.0) EU/dL Ur Leukocyte Esterase NEGATIVE (NEGATIVE) Urine RBC 0-1 (0-2/HPF) Urine WBC NONE SEEN (0-5/HPF) Ur Epithelial Cells RARE (NONE-FEW) Urine Bacteria RARE (NEGATIVE) 02/02/18 Range/Units 02:17 WBC (4.0-11.0) K/uL RBC (4.50-5.90) M/uL Hgb (13.0-17.0) g/dL Hct (38.0-50.0) % MCV (80.0-98.0) fL MCH (27.0-32.0) pg MCHC (31.0-37.0) g/dL RDW Std Deviation (28.0-62.0) fl RDW Coeff of Pool (11.0-15.0) % Plt Count (150-400) K/uL MPV (7.40-12.00) fL Neut % (Auto) (48.0-80.0) % Lymph % (Auto) (16.0-40.0) % [place] % (Auto) (0.0-15.0) % Eos % (Auto) (0.0-7.0) % Baso % (Auto) (0.0-1.5) % Neut # (Auto) (1.4-5.7) K/uL Lymph # (Auto) (0.6-2.4) K/uL [place] # (Auto) (0.0-0.8) K/uL Eos # (Auto) (0.0-0.7) K/uL Baso # (Auto) (0.0-0.1) K/uL Nucleated RBC % /100WBC Nucleated RBCs # K/uL INR D-Dimer, Quantitative (0.0-0.52) mg/LFEU Sodium 139 (136-148) mmol/L Potassium 3.9 (3.5-5.1) mmol/L Chloride 102 (98-107) mmol/L Carbon Dioxide 28.9 (21.0-32.0) mmol/L BUN 11 (7.0-18.0) mg/dL Creatinine 1.4 H (0.8-1.3) mg/dL Est Cr Clr Drug Dosing 68.54 mL/min Estimated GFR (MDRD) > 60.0 ml/min Glucose 110 H (74-106) mg/dL Calcium 9.2 (8.5-10.1) mg/dL Total Bilirubin 0.7 (0.2-1.0) mg/dL AST 11 L (15-37) IU/L ALT 25 (14-63) IU/L Alkaline Phosphatase 130 H (46-116) U/L Troponin I < 0.050 (0.000-0.056) ng/mL Total Protein 8.0 (6.4-8.2) g/dL Albumin 4.0 (3.4-5.0) g/dL Globulin 4.0 H (2.0-3.5) g/dL Albumin/Globulin Ratio 1.0 L (1.3-2.8) Lipase 296 (73-393) U/L Urine Color Urine Appearance Urine pH (5.0-8.0) Ur Specific [place] (1.001-1.035) Urine Protein (NEGATIVE) mg/dL Urine Glucose (UA) (NEGATIVE) mg/dL Urine Ketones (NEGATIVE) mg/dL Urine Occult Blood (NEGATIVE) Urine Nitrite (NEGATIVE) Urine Bilirubin (NEGATIVE) Urine Urobilinogen (<2.0) EU/dL Ur Leukocyte Esterase (NEGATIVE) Urine RBC (0-2/HPF) Urine WBC (0-5/HPF) Ur Epithelial Cells (NONE-FEW) Urine Bacteria (NEGATIVE) Result Diagrams: 02/02/18 02:17 02/02/18 02:17 Imaging Impressions Last 24 hrs: CT scan shows mildly dilated small bowel in the left abdomen measuring up to 3cms. No specific transition mentioned in dictation or identified by me reviewing the films. Consult PN Assessment/Plan Procedures: Procedures ASSAY OF TROPONIN QUANT (12/14/17) COMPLETE CBC W/AUTO DIFF WBC (12/14/17) COMPREHEN METABOLIC PANEL (12/14/17) ELECTROCARDIOGRAM TRACING (12/14/17) EMERGENCY DEPT VISIT (12/14/17) HYDRATE IV INFUSION ADD-ON (12/14/17) ROUTINE VENIPUNCTURE (12/14/17) THER/PROPH/DIAG INJ IV PUSH (12/14/17) X-RAY EXAM CHEST 1 VIEW (12/14/17) (1) Nausea without vomiting SNOMED Code(s): 069733191, [id number] Code(s): R11.0 - NAUSEA Priority: Medium Current Visit: Yes (2) Small bowel obstruction SNOMED Code(s): 003931237 Code(s): K56.609 - UNSP INTESTNL OBST, UNSP TO PARTIAL VERSUS COMPLETE OBST Priority: Medium Current Visit: Yes (3) Nonspecific chest pain SNOMED Code(s): 76134949 Code(s): R07.9 - CHEST PAIN, UNSPECIFIED Priority: Medium Current Visit: No Problem List Initiated/Reviewed/Updated: Yes Plan: Recommend conservative therapy for now. As he is passing gas, think he may have clear liquids. Repeat flat/upright abdomen in am as discussed. Consider gastrografin SBFT on Sunday if symptoms not improving.
[2018-02-03] MEDS: Sodium Chloride 0.9% 1,000 ML IV SCH (01:50)
[2018-02-03 07:02] LABS: CHLORIDE,CL 104 mmol/L (98-107); SODIUM,NA 137 mmol/L (136-148)
[2018-02-03] MEDS: Enoxaparin 40 MG/0.4 ML Syringe SUBCUT SCH (08:26)
--- NOTE | 2018-02-03 10:19 | PCM.CONSN ---
- General Info Date of Service: 02/03/18 Admission Dx/Problem (Free Text): Small bowel obstruction Subjective Update: Patient states he is feeling much better. Denies pain. Passing gas and having BMs. Functional Status: Reports: Pain Controlled, Tolerating Diet, Ambulating, Urinating. Denies: New Symptoms - Review of Systems General: Denies: Fever, Weakness, Fatigue HEENT: Reports: No Symptoms Pulmonary: Denies: Shortness of Breath, Cough Cardiovascular: Denies: Chest Pain Gastrointestinal: Reports: Flatus. Denies: Abdominal Pain, Constipation, Diarrhea, Nausea, Vomiting Genitourinary: Reports: No Symptoms Musculoskeletal: Reports: No Symptoms Skin: Reports: No Symptoms Neurological: Reports: No Symptoms Psychiatric: Reports: No Symptoms - Patient Data Vitals - Most Recent: Last Vital Signs Temp 98.1 F 02/03/18 08:00 Pulse 70 02/03/18 08:00 Resp 18 02/03/18 08:00 BP 140/86 02/03/18 08:00 Pulse Ox 100 02/03/18 08:00 Weight - Most Recent: 178 lb I&O - Last 24 Hours: Intake & Output 02/02/18 02/03/18 02/03/18 19:59 03:59 11:59 Intake Total 2201 2815 Output Total 600 1900 Balance 1601 915 Lab Results Last 24 Hours: Laboratory Results - last 24 hr 02/03/18 02/03/18 Range/Units 05:44 05:44 WBC 4.66 (4.0-11.0) K/uL RBC 5.11 (4.50-5.90) M/uL Hgb 14.1 (13.0-17.0) g/dL Hct 41.8 (38.0-50.0) % MCV 81.8 (80.0-98.0) fL MCH 27.6 (27.0-32.0) pg MCHC 33.7 (31.0-37.0) g/dL RDW Std Deviation 40.6 (28.0-62.0) fl RDW Coeff of Pool 14 (11.0-15.0) % Plt Count 210 (150-400) K/uL MPV 10.40 (7.40-12.00) fL Neut % (Auto) 53.7 (48.0-80.0) % Lymph % (Auto) 35.0 (16.0-40.0) % [place] % (Auto) 9.2 (0.0-15.0) % Eos % (Auto) 1.7 (0.0-7.0) % Baso % (Auto) 0.4 (0.0-1.5) % Neut # (Auto) 2.5 (1.4-5.7) K/uL Lymph # (Auto) 1.6 (0.6-2.4) K/uL [place] # (Auto) 0.4 (0.0-0.8) K/uL Eos # (Auto) 0.1 (0.0-0.7) K/uL Baso # (Auto) 0.0 (0.0-0.1) K/uL Nucleated RBC % 0.0 /100WBC Nucleated RBCs # 0 K/uL Sodium 137 (136-148) mmol/L Potassium 3.6 (3.5-5.1) mmol/L Chloride 104 (98-107) mmol/L Carbon Dioxide 26.7 (21.0-32.0) mmol/L BUN 9 (7.0-18.0) mg/dL Creatinine 1.3 (0.8-1.3) mg/dL Est Cr Clr Drug Dosing 73.81 mL/min Estimated GFR (MDRD) > 60.0 ml/min Glucose 94 (74-106) mg/dL Calcium 8.8 (8.5-10.1) mg/dL Total Bilirubin 1.2 H (0.2-1.0) mg/dL AST 12 L (15-37) IU/L ALT 18 (14-63) IU/L Alkaline Phosphatase 105 (46-116) U/L Total Protein 7.4 (6.4-8.2) g/dL Albumin 3.5 (3.4-5.0) g/dL Globulin 3.9 H (2.0-3.5) g/dL Albumin/Globulin Ratio 0.9 L (1.3-2.8) Med Orders - Current: Current Medications Enoxaparin Sodium (Lovenox) 40 mg SUBCUT Q24H [facility] Last Admin: 02/03/18 08:26 Dose: Not Given Sodium Chloride (Normal Saline) 1,000 mls @ 125 mls/hr IV ASDIRECTED [facility] Last Admin: 02/03/18 01:50 Dose: 125 mls/hr Ondansetron HCl (Zofran Odt) 4 mg PO Q6H PRN PRN Reason: nausea, able to take PO Sodium Chloride (Saline Flush) 2.5 ml FLUSH ASDIRECTED PRN PRN Reason: Keep Vein Open Last Admin: 02/02/18 02:35 Dose: 2.5 ml Sodium Chloride (Saline Flush) 10 ml FLUSH ASDIRECTED PRN PRN Reason: Keep Vein Open Last Admin: 02/02/18 02:35 Dose: 10 ml Sodium Chloride (Saline Flush) 2.5 ml FLUSH ASDIRECTED PRN PRN Reason: Keep Vein Open Last Admin: 02/02/18 02:35 Dose: 2.5 ml Discontinued Medications Sodium Chloride (Normal Saline) 1,000 mls @ 999 mls/hr IV BOLUS ONE Stop: 02/02/18 03:08 Last Admin: 02/02/18 02:34 Dose: 999 mls/hr Iopamidol (Isovue Multipack-370 (76%)) 50 ml IVPUSH ONETIME ONE Stop: 02/02/18 04:04 Last Admin: 02/02/18 04:04 Dose: 50 ml Morphine Sulfate (Morphine) 2 mg IVPUSH ONETIME ONE Stop: 02/02/18 03:20 Last Admin: 02/02/18 03:24 Dose: 2 mg Morphine Sulfate (Morphine) 2 mg IVPUSH Q2H PRN PRN Reason: Pain (severe 7-10) Stop: 02/03/18 08:32 - Exam Quality Assessment: No: Supplemental Oxygen General: Alert, Oriented, Cooperative, No Acute Distress HEENT: Pupils Equal, Pupils Reactive. No: Scleral Icterus Neck: Supple Lungs: Clear to Auscultation, Normal Respiratory Effort Cardiovascular: Regular Rate, Regular Rhythm, No Murmurs GI/Abdominal Exam: Normal Bowel Sounds, Soft, Non-Tender, No Distention, No Mass (Male) Exam: No Hernia, Normal Inspection Back Exam: Normal Inspection Extremities: Normal Inspection, Normal Range of Motion, No Pedal Edema, Normal Capillary Refill Skin: Warm, Dry, Intact Neurological: No New Focal Deficit Psy/Mental Status: Alert, Normal Affect, Normal Mood Consult PN Assessment/Plan Procedures: Procedures ASSAY OF TROPONIN QUANT (12/14/17) COMPLETE CBC W/AUTO DIFF WBC (12/14/17) COMPREHEN METABOLIC PANEL (12/14/17) ELECTROCARDIOGRAM TRACING (12/14/17) EMERGENCY DEPT VISIT (12/14/17) HYDRATE IV INFUSION ADD-ON (12/14/17) ROUTINE VENIPUNCTURE (12/14/17) THER/PROPH/DIAG INJ IV PUSH (12/14/17) X-RAY EXAM CHEST 1 VIEW (12/14/17) (1) Nausea without vomiting SNOMED Code(s): 099685524, 534751210 Code(s): R11.0 - NAUSEA Priority: Medium Current Visit: Yes (2) Small bowel obstruction SNOMED Code(s): 849588174 Code(s): K56.609 - UNSP INTESTNL OBST, UNSP TO PARTIAL VERSUS COMPLETE OBST Priority: Medium Current Visit: Yes (3) Nonspecific chest pain SNOMED Code(s): 59062644 Code(s): R07.9 - CHEST PAIN, UNSPECIFIED Priority: High Current Visit: Yes Problem List Initiated/Reviewed/Updated: Yes Plan: Flat and upright abdominal films show no evidence of small bowel obstruction. No significant air-fluid levels are noted. There is air in the colon. Results small bowel obstruction. I feel it is safe to advance his diet. If he tolerates that she could even be discharged later today. If he has recurrent symptoms a Gastrografin small bowel follow-through would be recommended.
--- NOTE | 2018-02-03 10:27 | PCM.DCSUM1 ---
Discharge Summary - Hospital Course Free Text/Narrative:: The patient is an otherwise healthy 37-year-old gentleman who was admitted to acute hospitalization secondary to a bowel obstruction which was causing the patient have left-sided flank and abdominal pain. The patient had been consulted with surgeon. On advice of general surgeon the patient was thought to be an operative candidate. The patient was treated conservatively without the use of an NG tube, clear diets, and pain control. Patient also had ambulated. As an incidental finding the patient was noted to have an umbilical hernia. This was not incarcerated or strangulated. The patient's laboratory studies had remained normal without signs of infection or liver or kidney issues. The patient's vital signs had remained stable. Towards the end of the short course of hospitalization the patient had a bowel movement and was able to pass gas. The patient's pain which brought him in originally had abated. The patient's diet was advanced and he's been recommended to continue with a diet as tolerated. He is also recommended to have exercise and activity as tolerated. The patient was hemodynamically stable by time of discharge and he had been discharged from acute hospitalization with the recommendations above. He is to follow-up with a primary care physician. HPI Initial Comments: Admitted for pain secondary to small bowel obstruction. Diagnosis: Stroke: No - Discharge Data Discharge Date: 02/03/18 Discharge Disposition: Home, Self-Care 01 Condition: Good - Discharge Diagnosis/Problem(s) (1) Small bowel obstruction, partial SNOMED Code(s): 326093686 ICD Code: K56.600 - PARTIAL INTESTINAL OBSTRUCTION, UNSPECIFIED TO CAUSE Status: Resolved Priority: High (2) Nausea without vomiting SNOMED Code(s): 363988034, 688491627 ICD Code: R11.0 - NAUSEA Status: Resolved Priority: Medium (3) Nonspecific chest pain SNOMED Code(s): 49301267 ICD Code: R07.9 - CHEST PAIN, UNSPECIFIED Status: Resolved Priority: High - Patient Summary/Data Consults: Consultations 02/02/18 08:30 Consult to Physician [CONS] Routine - Patient Instructions Diet: Regular Diet as Tolerated Activity: As Tolerated Driving: May Drive Today - Discharge Plan *PRESCRIPTION DRUG MONITORING PROGRAM REVIEWED*: No *COPY OF PRESCRIPTION DRUG MONITORING REPORT IN PATIENT VARINDER: No Home Medications: Home Meds . [No Known Home Meds] 12/14/17 [History] Patient Handouts: Small Bowel Obstruction, [id number] Referrals: Doug Alvarado MD [Physician] - Meño Carrasco MD [Physician] - - Discharge Summary/Plan Comment DC Time >30 min.: Yes - General Info Date of Service: 02/03/18 Admission Dx/Problem (Free Text: Small bowel obstruction Subjective Update: Much better, hemodynamically stable. Functional Status: Reports: Pain Controlled, Tolerating Diet - Review of Systems General: Reports: No Symptoms HEENT: Reports: No Symptoms Pulmonary: Reports: No Symptoms Cardiovascular: Reports: No Symptoms Gastrointestinal: Reports: No Symptoms Genitourinary: Reports: No Symptoms Musculoskeletal: Reports: No Symptoms Skin: Reports: No Symptoms Neurological: Reports: No Symptoms Psychiatric: Reports: No Symptoms - Patient Data Vitals - Most Recent: Last Vital Signs Temp 36.7 C 02/03/18 08:00 Pulse 70 02/03/18 08:00 Resp 18 02/03/18 08:00 BP 140/86 02/03/18 08:00 Pulse Ox 100 02/03/18 08:00 Weight - Most Recent: 80.739 kg I&O - Last 24 hours: Intake & Output 02/02/18 02/03/18 02/03/18 22:59 06:59 14:59 Intake Total 2201 2815 Output Total 600 1900 Balance 1601 915 Lab Results - Last 24 hrs: Laboratory Results - last 24 hr 02/03/18 02/03/18 Range/Units 05:44 05:44 WBC 4.66 (4.0-11.0) K/uL RBC 5.11 (4.50-5.90) M/uL Hgb 14.1 (13.0-17.0) g/dL Hct 41.8 (38.0-50.0) % MCV 81.8 (80.0-98.0) fL MCH 27.6 (27.0-32.0) pg MCHC 33.7 (31.0-37.0) g/dL RDW Std Deviation 40.6 (28.0-62.0) fl RDW Coeff of Pool 14 (11.0-15.0) % Plt Count 210 (150-400) K/uL MPV 10.40 (7.40-12.00) fL Neut % (Auto) 53.7 (48.0-80.0) % Lymph % (Auto) 35.0 (16.0-40.0) % [place] % (Auto) 9.2 (0.0-15.0) % Eos % (Auto) 1.7 (0.0-7.0) % Baso % (Auto) 0.4 (0.0-1.5) % Neut # (Auto) 2.5 (1.4-5.7) K/uL Lymph # (Auto) 1.6 (0.6-2.4) K/uL [place] # (Auto) 0.4 (0.0-0.8) K/uL Eos # (Auto) 0.1 (0.0-0.7) K/uL Baso # (Auto) 0.0 (0.0-0.1) K/uL Nucleated RBC % 0.0 /100WBC Nucleated RBCs # 0 K/uL Sodium 137 (136-148) mmol/L Potassium 3.6 (3.5-5.1) mmol/L Chloride 104 (98-107) mmol/L Carbon Dioxide 26.7 (21.0-32.0) mmol/L BUN 9 (7.0-18.0) mg/dL Creatinine 1.3 (0.8-1.3) mg/dL Est Cr Clr Drug Dosing 73.81 mL/min Estimated GFR (MDRD) > 60.0 ml/min Glucose 94 (74-106) mg/dL Calcium 8.8 (8.5-10.1) mg/dL Total Bilirubin 1.2 H (0.2-1.0) mg/dL AST 12 L (15-37) IU/L ALT 18 (14-63) IU/L Alkaline Phosphatase 105 (46-116) U/L Total Protein 7.4 (6.4-8.2) g/dL Albumin 3.5 (3.4-5.0) g/dL Globulin 3.9 H (2.0-3.5) g/dL Albumin/Globulin Ratio 0.9 L (1.3-2.8) Med Orders - Current: Current Medications Enoxaparin Sodium (Lovenox) 40 mg SUBCUT Q24H [facility] Last Admin: 02/03/18 08:26 Dose: Not Given Sodium Chloride (Normal Saline) 1,000 mls @ 125 mls/hr IV ASDIRECTED [facility] Last Admin: 02/03/18 01:50 Dose: 125 mls/hr Ondansetron HCl (Zofran Odt) 4 mg PO Q6H PRN PRN Reason: nausea, able to take PO Sodium Chloride (Saline Flush) 2.5 ml FLUSH ASDIRECTED PRN PRN Reason: Keep Vein Open Last Admin: 02/02/18 02:35 Dose: 2.5 ml Sodium Chloride (Saline Flush) 10 ml FLUSH ASDIRECTED PRN PRN Reason: Keep Vein Open Last Admin: 02/02/18 02:35 Dose: 10 ml Sodium Chloride (Saline Flush) 2.5 ml FLUSH ASDIRECTED PRN PRN Reason: Keep Vein Open Last Admin: 02/02/18 02:35 Dose: 2.5 ml Discontinued Medications Sodium Chloride (Normal Saline) 1,000 mls @ 999 mls/hr IV BOLUS ONE Stop: 02/02/18 03:08 Last Admin: 02/02/18 02:34 Dose: 999 mls/hr Iopamidol (Isovue Multipack-370 (76%)) 50 ml IVPUSH ONETIME ONE Stop: 02/02/18 04:04 Last Admin: 02/02/18 04:04 Dose: 50 ml Morphine Sulfate (Morphine) 2 mg IVPUSH ONETIME ONE Stop: 02/02/18 03:20 Last Admin: 02/02/18 03:24 Dose: 2 mg Morphine Sulfate (Morphine) 2 mg IVPUSH Q2H PRN PRN Reason: Pain (severe 7-10) Stop: 02/03/18 08:32 - Exam Quality Assessment: Denies: Supplemental Oxygen General: Reports: Alert, Oriented HEENT: Reports: Pupils Equal, Pupils Reactive, EOMI, Mucous Membr. Moist/[place] Neck: Reports: Supple, Trachea Midline, No Thyromegaly. Denies: Lymphadenopathy Lungs: Reports: Clear to Auscultation, Normal Respiratory Effort Cardiovascular: Reports: Regular Rate, Regular Rhythm GI/Abdominal Exam: Normal Bowel Sounds, Soft, Non-Tender, No Organomegaly, No Distention, No Mass (Male) Exam: Deferred Rectal (Males) Exam: Deferred Back Exam: Reports: Normal Inspection, Full Range of Motion Extremities: Normal Inspection, Normal Range of Motion, Non-Tender, No Pedal Edema Skin: Reports: Warm, Dry, Intact Neurological: Reports: No New Focal Deficit Psy/Mental Status: Reports: Alert, Normal Affect, Normal Mood
--- NOTE | 2018-02-04 11:51 | CR ---
EXAM DATE: 02/02/18 PATIENT'S AGE: 37 Patient: AYAAN QUIROZ Facility: [place], [place] Site . Site : 1980 Study: XRay Chest [id number]/29/2018 3:12:58 AM Ordering Physician: Seth Wilson Final Report: INDICATION: Chest pain. TECHNIQUE: Chest radiograph 1 view COMPARISON: 12/14/2017 FINDINGS: Mediastinum: The mediastinum is normal in appearance. The heart silhouette is normal in size and morphology. Lung: Mild bibasilar subsegmental atelectasis is noted. No sign of pleural effusion seen. No pneumothorax is identified. Musculoskeletal: Unremarkable for age. IMPRESSION: 1. Mild bibasilar subsegmental atelectasis is noted. Dictated by: Felice Matute MD @ 02/02/2018 03:14:00 (Electronic Signature) Report Signed by Proxy. GUSTAVO
--- NOTE | 2018-02-04 11:52 | CT ---
EXAM DATE: 02/02/18 PATIENT'S AGE: 37 Patient: AYAAN QUIROZ Facility: [place], [place] Site . Site : 1980 Study: CT Abdomen/Pelvis [id number]/29/2018 3:13:44 AM Ordering Physician: Seth Wilson Final Report: INDICATION: Left lower quadrant, back pain TECHNIQUE: CT Abdomen and pelvis without i.v. contrast. Coronal and sagittal reformats were obtained. CONTRAST: None COMPARISON: None FINDINGS: Moderate degradation of image quality is present due to the patient`s inability to maintain a breath hold. Lower chest: Small left pleural effusion with patchy consolidation left lung base present, likely due to atelectasis. Liver: Unremarkable. Spleen: Unremarkable. Pancreas: Unremarkable. Gallbladder: Unremarkable. Kidney: Unremarkable. No kidney or ureteral stones or obstruction seen. Adrenal: Unremarkable. Bowel: There is an umbilical hernia present containing small bowel without causing obstruction. Small bowel in the left flank and epigastrium are mildly dilated measuring up to 3 cm. Transition point is suspected in the left flank. The appendix is normal in appearance and size. Vascular: Unremarkable. Lymph: Unremarkable. Peritoneum: Unremarkable. No pneumoperitoneum is seen. No significant ascites is noted. Pelvis: Unremarkable. Soft tissue: Unremarkable. Bone: Unremarkable for age. IMPRESSIONS: 1. Small left pleural effusion with patchy consolidation left lung base present , likely due to atelectasis. Clinical correlation recommended to exclude pneumonia. Follow-up radiographs are recommended to document resolution. 2. There is an umbilical hernia present containing small bowel without causing obstruction. 3. Small bowel in the left flank and epigastrium are mildly dilated measuring up to 3 cm. Transition point is suspected in the left flank. Clinical imaging follow-up recommended to exclude a small bowel obstruction. Dictated by Felice Matute MD @ 02/02/2018 3:33:39 AM Please note that all CT scans at this facility use dose modulation, iterative reconstruction, and/or weight-based dosing when appropriate to reduce radiation dose to as low as reasonably achievable. Dictated by: Felice Matute MD @ 02/02/2018 03:33:44 (Electronic Signature) Report Signed by Proxy. [facility]
--- NOTE | 2018-02-04 11:53 | CT ---
EXAM DATE: 02/02/18 PATIENT'S AGE: 37 Patient: AYAAN QUIROZ Facility: [place], [place] Site . Site : 1980 Study: CT Chest Angio [id number]/29/2018 4:06:40 AM Ordering Physician: Seth Wilson Final Report: INDICATION: Shortness of breath with elevated d-dimer TECHNIQUE: CT chest with i.v. contrast using pulmonary angiographic technique. Coronal and sagittal reformats were obtained. CONTRAST: 50 mL Isovue 370 COMPARISON: None FINDINGS: Cardiovascular: The pulmonary arteries are unremarkable in enhancement with no evidence of acute pulmonary embolism. The heart has an unremarkable appearance and size. No sign of aneurysm or dissection in the thoracic aorta. Mediastinum: No mass or adenopathy seen. Lung: Patchy ground-glass atelectasis is present in the right lower lobe. Ground -glass atelectasis and patchy consolidation seen in the left lower lobe. Pleura and pericardium: Small left pleural effusion is noted. No significant pericardial effusion is present. Chest wall and axilla: No mass or adenopathy seen. Bone: Unremarkable for age. Upper abdomen: Unremarkable. IMPRESSIONS: 1. No CT evidence of pulmonary emboli seen. 2. Small left pleural effusion is noted. 3. Ground-glass atelectasis and patchy consolidation seen in the left lower lobe. This is likely due to atelectasis but clinical correlation is recommended to exclude pneumonia. Dictated by Felice Matute MD @ 02/02/2018 4:16:28 AM Please note that all CT scans at this facility use dose modulation, iterative reconstruction, and/or weight-based dosing when appropriate to reduce radiation dose to as low as reasonably achievable. Dictated by: Felice Matute MD @ 02/02/2018 04:16:33 (Electronic Signature) Report Signed by Proxy. GUSTAVO
--- NOTE | 2018-02-04 17:46 | CR ---
EXAM DATE: 02/02/18 PATIENT'S AGE: 37 Patient: AYAAN QUIROZ Facility: [place], [place] Site . Site : 1980 Study: XRay Abdomen [id number]/30/2018 8:09:55 AM Ordering Physician: Julia Roach Final Report: HISTORY: Abdominal pain. COMPARISON: CT 02/02/2018. FINDINGS: Moderately dilated loops of small bowel in the left abdomen with air-fluid levels similar-appearing to prior imaging. This may represent small bowel obstruction. No evidence for free intraperitoneal air. Minimal airspace opacity left lower lung. Dictated by Roxy Velazquez MD @ Feb 03 2018 8:19AM (Electronic Signature) Report Signed by Proxy. MTDD
== END 2018-02-03 11:45 | disposition home or self-care (01) | DRG 390 ==
LOC: MW.ED 02:03 → MW.MS 04:38 → OBSVTOIN 08:30
PROVIDERS: ADMIT Internal Medicine; ATTEND Internal Medicine
PROC: 0D9670Z Drainage of Stomach with Drainage Device, Via Natural or Artificial Opening (ICD-10-PCS; principal; 2018-02-02)
DX: K56.600 Partial intestinal obstruction, unspecified as to cause (principal); K42.9 Umbilical hernia without obstruction or gangrene; R07.9 Chest pain, unspecified
CPT/HCPCS: 36415; 71045; 71045-26; 71275; 71275-26; 74019; 74019-26; 74176; 74176-26; 80053; 81001; 83690; 84484; 85025; 85379; 85610; 87086; 93005; 96361; 96374; 99284; 99285-25; J1650; J2270; J7040; Q9967

== ENCOUNTER 2018-10-28 07:35 | Day surgery (SDC) | payer MEDICAID ==
[~2018-10-28 07:35] MED LIST: Lactated Ringers 1,000 ML IV SCH; cefOXitin 2 GM in Premix Bag 1 BAG IV ONE
[2018-10-28] MEDS ORDERED: Scopolamine 1.5 MG Transdermal Patch TRDERM PRN (08:28)
--- NOTE | 2018-10-28 08:29 | PCM.PREANE ---
Preanesthetic Assessment - Anesthesia/Transfusion/Family Hx Anesthesia History: Prior Anesthesia Without Reaction Family History of Anesthesia Reaction: No Transfusion History: No Prior Transfusion(s) - Review of Systems General: No Symptoms Pulmonary: No Symptoms Cardiovascular: No Symptoms Gastrointestinal: No Symptoms Neurological: No Symptoms Other: Reports: None - Physical Assessment NPO Status Date: 10/27/18 O2 Sat by Pulse Oximetry: 100 Respiratory Rate: 15 Vital Signs: Last Vital Signs Temp 97.9 F 10/28/18 07:55 Pulse 73 10/28/18 07:55 Resp 15 10/28/18 07:55 BP 145/89 H 10/28/18 07:55 Pulse Ox 100 10/28/18 07:55 Height: 5 ft 8 in Weight: 80.739 kg ASA Class: 1 Mental Status: Alert & Oriented x3 Airway Class: Mallampati = 1 Dentition: Reports: Normal Dentition ROM/Head Extension: Full Lungs: Clear to Auscultation, Normal Respiratory Effort Cardiovascular: Regular Rate, Regular Rhythm - Allergies Allergies/Adverse Reactions: Allergies Allergy/AdvReac Type Severity Reaction Status Date / Time No Known Allergies Allergy Verified 10/23/18 10:37 - Blood Blood Available: No - Anesthesia Plan Pre-Op Medication Ordered: None - Acknowledgements Anesthesia Type Planned: General Anesthesia Pt an Appropriate Candidate for the Planned Anesthesia: Yes Alternatives and Risks of Anesthesia Discussed w Pt/Guardian: Yes Pt/Guardian Understands and Agrees with Anesthesia Plan: Yes Additional Comments: yarely prob list: Robert Gaitan - no blood products PLAN: GET PreAnesthesia Questionnaire - Past Health History Medical/Surgical History: Denies Medical/Surgical History HEENT History: Reports: Other (See Below) Other HEENT History: wears glasses Cardiovascular History: Reports: None Respiratory History: Reports: None Gastrointestinal History: Reports: Bowel Obstruction Genitourinary History: Reports: None Musculoskeletal History: Reports: None Neurological History: Reports: None Psychiatric History: Reports: None Endocrine/Metabolic History: Reports: None Hematologic History: Reports: None Oncologic (Cancer) History: Reports: None Dermatologic History: Reports: Other (See Below) Other Dermatologic History: 2 itchy spots on his leg that have been there for "years" - Infectious Disease History Infectious Disease History: Reports: None - Past Surgical History HEENT Surgical History: Reports: None Cardiovascular Surgical History: Reports: None Respiratory Surgical History: Reports: None GI Surgical History: Reports: None Male Surgical History: Reports: Vasectomy Musculoskeletal Surgical History: Reports: Other (See Below) Other Musculoskeletal Surgeries/Procedures:: had "something removed" from his hand - SUBSTANCE USE Smoking Status *Q: Never Smoker Recreational Drug Use History: No - HOME MEDS Home Medications: Home Meds Meloxicam 15 mg PO DAILY 10/23/18 [History] - CURRENT (IN HOUSE) MEDS Current Meds: Current Medications Lactated Ringer's (Ringers, Lactated) 1,000 mls @ 125 mls/hr IV ASDIRECTED [facility] Last Admin: 10/28/18 08:07 Dose: 125 mls/hr Discontinued Medications Cefoxitin Sodium 2 gm/ Premix 50 mls @ 100 mls/hr IV ONETIME ONE Stop: 10/28/18 06:29
[2018-10-28] MEDS ORDERED: Scopolamine 1.5 MG Transdermal Patch ONE (08:34)
[2018-10-28] MEDS ORDERED: Midazolam 1 MG/ML 2 ML SDV ONE (09:06)
[2018-10-28] MEDS ORDERED: fentaNYL 100 MCG/2 ML SDV ONE (09:06)
[2018-10-28] MEDS ORDERED: Propofol 200 MG/20 ML SDV ONE (09:07)
[2018-10-28] MEDS ORDERED: Lidocaine 2% 5 ML SDV ONE (09:07)
[2018-10-28] MEDS ORDERED: Bupivacaine 0.5% 30 ML SDV ONE (09:13)
[2018-10-28] MEDS ORDERED: ceFAZolin 1 GM Vial ONE (09:13)
[2018-10-28] MEDS ORDERED: Rocuronium 100 MG/10 ML MDV ONE (09:14)
[2018-10-28] MEDS ORDERED: Bupivacaine 0.5% 10 ML SDV ONE (09:24)
[2018-10-28] MEDS ORDERED: Sugammadex Sodium 200 MG/2 ML VIAL ONE (09:24)
[2018-10-28] MEDS ORDERED: HYDROmorphone 2 MG/ML Syringe ONE (10:20)
[2018-10-28] MEDS ORDERED: Ketorolac 30 MG/ML SDV ONE (10:43)
[2018-10-28] MEDS ORDERED: Morphine 10 MG/ML Syringe IVPUSH PRN (11:09)
[2018-10-28] MEDS ORDERED: Acetaminophen/HYDROcodone 325-5 MG Tab PO PRN (11:09)
--- NOTE | 2018-10-28 11:10 | PCM.OPNOTE ---
- General Post-Op/Procedure Note Date of Surgery/Procedure: 10/28/18 Operative Procedure(s): Laparoscopic cholecystectomy Pre Op Diagnosis: Chronic right upper quadrant pain. Abnormal hepatobiliary scan. Post-Op Diagnosis: Chronic cholecystitis Anesthesia Technique: General ET Tube (ASA I) Primary Surgeon: Doug Alvarado Fluid Replacement, Intraop: 1,500 Output, Urine Amount: 150 EBL in mLs: 10 Condition: Good Free Text/Narrative:: Intake & Output 10/27/18 10/28/18 10/28/18 19:59 03:59 11:59 Output Total 150 Balance -150 DICTATION [id number] CPT CODE 98010
[2018-10-28] MEDS ORDERED: Lactated Ringers 1,000 ML IV SCH (11:15)
--- NOTE | 2018-10-28 11:49 | OR ---
SURGEON: Doug Alvarado M.D. DATE OF PROCEDURE: 10/28/2018 OPERATION PERFORMED: Laparoscopic cholecystectomy. PRIMARY SURGEON: Doug Alvarado M.D. ANESTHESIA: General endotracheal. ASA CLASSIFICATION: I. PREOPERATIVE DIAGNOSES: 1. Chronic right upper quadrant pain. 2. Abnormal hepatobiliary scan. POSTOPERATIVE DIAGNOSES: 1. Chronic right upper quadrant pain. 2. Abnormal hepatobiliary scan. ESTIMATED BLOOD LOSS: 10 mL. INTRAOPERATIVE FLUID REPLACEMENT: 1500 mL of crystalloid. INTRAOPERATIVE URINE OUTPUT: 150 mL. DESCRIPTION OF PROCEDURE: The patient was taken to the operating room and placed on the operating table in the supine position. Time-out was called for appropriate identification of patient and procedure. Thigh-high TEDs and sequential compression boots were placed. Following satisfactory attainment of general endotracheal anesthesia, a Rutledge catheter was placed in the patient's urinary bladder. The abdomen was prepped with DuraPrep solution. Sterile drapes were applied. Skin incision was made just below the umbilicus and deepened into the subcutaneous tissue obtaining hemostasis with the use of electrocautery. The Veress needle was introduced into the peritoneal cavity. Saline drop test was positive. Carbon dioxide pneumoperitoneum was established with the release set at 13 cm of water. Once the satisfactory pneumoperitoneum was established, 5 mm camera port was placed through the infraumbilical incision. Under camera vision, 12 mm subxiphoid, 5 mm midclavicular, and 5 mm anterior axillary ports were placed. Each incision had preemptively been infiltrated with 0.5% Marcaine solution. The gallbladder was grasped, adhesions were taken down, and the cholecystohepatic triangle was dissected free obtaining a good critical view of both the cystic duct and cystic artery. Once these structures had been appropriately identified, they were hemoclipped and divided with laparoscopic Metzenbaum scissor. The gallbladder was then removed and from the liver bed using electrocautery. Small bleeding sites were electrocoagulated. Some bile from the gallbladder was spilled. I did not see any bile leaking from the liver itself. Once the gallbladder was amputated, this was placed in an EndoCatch and maintained in the peritoneal cavity. The right upper quadrant was irrigated with sterile saline solution and all fluid was aspirated. Surgicel was placed into the bed of the gallbladder. The right hemidiaphragm was then irrigated with 500 mL of saline containing 20 mL of 0.5% Marcaine solution. That solution was left in place. The 12 mm subxiphoid port and EndoCatch containing gallbladder were removed. Under camera vision, the 5 mm midclavicular and anterior axillary ports were removed. Finally, the infraumbilical camera and port were removed. The CO2 was allowed to evacuate into the atmosphere. The wounds were inspected for hemostasis and small bleeding sites were electrocoagulated. The infraumbilical and subxiphoid incisions were closed in 2 layers approximating the subcutaneous tissue with 3-0 Vicryl and the skin with subcuticular 4-0 Monocryl. The midclavicular and anterior axillary incisions were closed with subcuticular 4-0 Monocryl. All incisions were Steri-Stripped and dressed with sterile Tegaderm pads. Sponge, needle, and instrument counts were all correct. The Rutledge catheter was removed prior to emergence from anesthesia. Following emergence from anesthesia and extubation, the patient was taken to recovery room in stable condition. TRACY OLIVEIRA /[id number]
--- NOTE | 2018-10-28 12:35 | PCM.POSTAN ---
POST ANESTHESIA ASSESSMENT - MENTAL STATUS Mental Status: Alert, Oriented - RESPIRATORY Respiratory Status: Respiratory Rate WNL, Airway Patent, O2 Saturation Stable - CARDIOVASCULAR CV Status: Pulse Rate WNL, Blood Pressure Stable - GASTROINTESTINAL GI Status: No Symptoms - POST OP HYDRATION Hydration Status: Adequate & Stable
--- NOTE | 2018-10-28 13:50 | PCM48HPAN ---
Post Anesthesia Note - EVALUATION WITHIN 48HRS OF ANESTHETIC Vital Signs in Normal Range: Yes Patient Participated in Evaluation: Yes Respiratory Function Stable: Yes Airway Patent: Yes Cardiovascular Function Stable: Yes Hydration Status Stable: Yes Pain Control Satisfactory: Yes Nausea and Vomiting Control Satisfactory: Yes Mental Status Recovered: Yes Resp Rate: 15
== END 2018-10-28 14:34 | disposition home or self-care (01) ==
LOC: MW.SDS 07:35
PROVIDERS: ATTEND Surgery
DX: K81.1 Chronic cholecystitis (principal); K42.9 Umbilical hernia without obstruction or gangrene; M17.11 Unilateral primary osteoarthritis, right knee; Z79.1 Long term (current) use of non-steroidal anti-inflammatories (NSAID)
CPT/HCPCS: 47562; A9270; J0690; J1170; J1885; J2001; J2250; J2704; J3010; J3490; J7120; 88304

== ENCOUNTER 2019-06-15 08:20 | Emergency (ER) | payer MEDICAID ==
--- NOTE | 2019-06-15 08:49 | EDM.PDOC ---
ED HPI GENERAL MEDICAL PROBLEM - General Chief Complaint: Abdominal Pain Stated Complaint: LT LOWER BACK PAIN Time Seen by Provider: 06/15/19 08:48 Source of Information: Reports: Patient History Limitations: Reports: Other - History of Present Illness Duration: Week(s): (Worse for the last 8 weeks. Pain is been increased for the last 2 weeks. Pain has been waxing and waning for the last 8 months.), Waxing/ Waning Location: Reports: Abdomen Quality: Reports: Ache Severity: Moderate Improves with: Reports: None Worsens with: Reports: None. Denies: Eating, Movement Associated Symptoms: Reports: No Other Symptoms Treatments INFORMATION RECEPTIONIST: Reports: Acetaminophen, NSAIDS Right upper quad Pain Score (Numeric/FACES): 8 - Related Data Allergies Allergy/AdvReac Type Severity Reaction Status Date / Time No Known Allergies Allergy Verified 06/15/19 08:30 Home Meds: Home Meds . [No Known Home Meds] 06/15/19 [History] Past Medical History - Past Health History Medical/Surgical History: Denies Medical/Surgical History HEENT History: Reports: Other (See Below) Other HEENT History: wears glasses Cardiovascular History: Reports: None Respiratory History: Reports: None Gastrointestinal History: Reports: Bowel Obstruction Genitourinary History: Reports: None Musculoskeletal History: Reports: None Neurological History: Reports: None Psychiatric History: Reports: None Endocrine/Metabolic History: Reports: None Hematologic History: Reports: None Oncologic (Cancer) History: Reports: None Dermatologic History: Reports: Other (See Below) Other Dermatologic History: 2 itchy spots on his leg that have been there for "years" - Infectious Disease History Infectious Disease History: Reports: None - Past Surgical History HEENT Surgical History: Reports: None Cardiovascular Surgical History: Reports: None Respiratory Surgical History: Reports: None GI Surgical History: Reports: None Male Surgical History: Reports: Vasectomy Social & Family History - Family History Family Medical History: Noncontributory - Tobacco Use Smoking Status *Q: Never Smoker Second Hand Smoke Exposure: No - Caffeine Use Caffeine Use: Reports: Soda - Recreational Drug Use Recreational Drug Use: No - Living Situation & Occupation Living situation: Reports: , with Spouse Occupation: Employed ED ROS GENERAL - Review of Systems Review Of Systems: Comprehensive ROS is negative, except as noted in HPI. ED EXAM, GI/ABD - Physical Exam Exam: See Below Exam Limited By: No Limitations General Appearance: Alert, No Apparent Distress Throat/Mouth: Normal Inspection Head: Atraumatic Neck: Normal Inspection Respiratory/Chest: No Respiratory Distress, Lungs Clear, Normal Breath Sounds Cardiovascular: Normal Peripheral Pulses, Regular Rate, Rhythm GI/Abdominal Exam: Normal Bowel Sounds, No Distention, Tender. No: Hepatomegaly , Splenomegaly Back Exam: Normal Inspection Extremities: Normal Inspection Neurological: Alert, Oriented Psychiatric: Normal Affect Skin Exam: Warm, Dry Course - Vital Signs Text/Narrative:: Patient's abdominal ultrasound shows no enlarged common duct. Otherwise it is being read as normal. Patient's lipase is elevated at 492 otherwise his LFTs and other labs are normal. Since patient has not vomiting afebrile and does not look sick I am discharging him at this time to follow-up with Dr. Alvarado for an MRCP and further work-up for possible common duct stone or polyp. I will discharge him with some pain medicines and antiemetic and recommendations for low-fat diet. To return to emergency department having fever chills, vomiting or worsening pain. Last Recorded V/S: Last Vital Signs Temp 37.2 C 06/15/19 08:32 Pulse 62 06/15/19 08:32 Resp 18 06/15/19 08:32 BP 122/69 06/15/19 08:32 Pulse Ox 98 06/15/19 08:32 - Orders/Labs/Meds Orders: Active Orders 24 hr Category Date Time Status UA W/MICROSCOPIC [URIN] Stat Lab 06/15/19 08:54 Ordered Labs: Laboratory Tests 06/15/19 06/15/19 06/15/19 Range/Units 09:22 09:22 09:22 WBC 4.31 (4.0-11.0) K/uL RBC 5.15 (4.50-5.90) M/uL Hgb 14.4 (13.0-17.0) g/dL Hct 42.6 (38.0-50.0) % MCV 82.7 (80.0-98.0) fL MCH 28.0 (27.0-32.0) pg MCHC 33.8 (31.0-37.0) g/dL RDW Std Deviation 42.5 (28.0-62.0) fl RDW Coeff of Pool 14 (11.0-15.0) % Plt Count 215 (150-400) K/uL MPV 10.30 (7.40-12.00) fL Neut % (Auto) 57.1 (48.0-80.0) % Lymph % (Auto) 33.6 (16.0-40.0) % [place] % (Auto) 5.8 (0.0-15.0) % Eos % (Auto) 3.0 (0.0-7.0) % Baso % (Auto) 0.5 (0.0-1.5) % Neut # (Auto) 2.5 (1.4-5.7) K/uL Lymph # (Auto) 1.5 (0.6-2.4) K/uL [place] # (Auto) 0.3 (0.0-0.8) K/uL Eos # (Auto) 0.1 (0.0-0.7) K/uL Baso # (Auto) 0.0 (0.0-0.1) K/uL Nucleated RBC % 0.0 /100WBC Nucleated RBCs # 0 K/uL Sodium 139 (136-148) mmol/L Potassium 4.0 (3.5-5.1) mmol/L Chloride 105 (98-107) mmol/L Carbon Dioxide 27.6 (21.0-32.0) mmol/L BUN 13 (7.0-18.0) mg/dL Creatinine 1.4 H (0.8-1.3) mg/dL Est Cr Clr Drug Dosing 67.18 mL/min Estimated GFR (MDRD) > 60.0 ml/min Glucose 101 (74-106) mg/dL Calcium 9.2 (8.5-10.1) mg/dL Total Bilirubin 0.6 (0.2-1.0) mg/dL AST 17 (15-37) IU/L ALT 34 (14-63) IU/L Alkaline Phosphatase 133 H (46-116) U/L Total Protein 7.9 (6.4-8.2) g/dL Albumin 3.8 (3.4-5.0) g/dL Globulin 4.1 H (2.6-4.0) g/dL Albumin/Globulin Ratio 0.9 (0.9-1.6) Lipase 492 H (73-393) U/L Ethyl Alcohol <3 mg/dL Meds: Medications Discontinued Medications Generic Name Dose Route Start Last Admin Trade Name Cruz PRN Reason Stop Dose Admin Ketorolac Tromethamine 60 mg 06/15/19 08:50 06/15/19 09:12 Toradol IM 06/15/19 08:51 Not Given ONETIME ONE Departure - Departure Time of Disposition: 11:16 Disposition: Home, Self-Care 01 Condition: Fair Clinical Impression: Pancreatitis - Discharge Information Referrals: Meño Carrasco MD [Primary Care Provider] - Forms: ED Department Discharge Additional Instructions: Follow-up with Dr. Alvarado for additional work-up and treatment. Low-fat diet as directed. Nausea and pain meds as needed. Return to ER if having fever, vomiting or worse pain. Ibuprofen with meals. Care Plan Goals: The following information is given to patients seen in the emergency department who are being discharged to home. This information is to outline your options for follow-up care. We provide all patients seen in our emergency department with a follow-up referral. The need for follow-up, as well as the timing and circumstances, are variable depending upon the specifics of your emergency department visit. If you don't have a primary care physician on staff, we will provide you with a referral. We always advise you to contact your personal physician following an emergency department visit to inform them of the circumstance of the visit and for follow-up with them and/or the need for any referrals to a consulting specialist. The emergency department will also refer you to a specialist when appropriate. This referral assures that you have the opportunity for follow-up care with a specialist. All of these measure are taken in an effort to provide you with optimal care, which includes your follow-up. Under all circumstances we always encourage you to contact your private physician who remains a resource for coordinating your care. When calling for follow-up care, please make the office aware that this follow-up is from your recent emergency room visit. If for any reason you are refused follow-up, please contact the [facility] Emergency Department at and asked to speak to the emergency department charge nurse. Sepsis Event Note - Evaluation Sepsis Screening Result: No Definite Risk - Focused Exam Vital Signs: Vital Signs Temp Pulse Resp BP Pulse Ox 06/15/19 08:32 37.2 C 62 18 122/69 98 Date Exam was Performed: 06/15/19 Time Exam was Performed: 11:13 - My Orders Last 24 Hours: My Active Orders 06/15/19 08:54 UA W/MICROSCOPIC [URIN] Stat - Assessment/Plan Last 24 Hours: My Active Orders 06/15/19 08:54 UA W/MICROSCOPIC [URIN] Stat
[2019-06-15] MEDS ORDERED: Ketorolac 60 MG/2 ML SDV IM ONE (08:50)
[2019-06-15 09:47] LABS: BLOOD UREA NITROGEN,BUN 13 mg/dL (7.0-18.0); CARBON DIOXIDE,CO2 27.6 mmol/L (21.0-32.0); CHLORIDE,CL 105 mmol/L (98-107); GLUCOSE RANDOM 101 mg/dL (74-106); LIPASE 492 U/L (73-393); SODIUM,NA 139 mmol/L (136-148)
--- NOTE | 2019-06-15 11:02 | US ---
Limited abdominal ultrasound: Multiple real-time images of the upper right abdomen were obtained. Liver shows no focal abnormality. Right kidney shows no hydronephrosis or mass. Right kidney has a length of 10.5 cm. Gallbladder not visualized compatible with previous cholecystectomy. Visualized pancreas appear within normal limits. No biliary duct dilatation is appreciated. Common bile duct measures 4 mm. Impression: 1. Previous cholecystectomy. 2. No abnormality is appreciated on right upper quadrant abdominal ultrasound. Diagnostic code #2 This report was dictated in [place] Standard Time
== END 2019-06-15 11:40 | disposition home or self-care (01) ==
LOC: MW.ED 08:20
DX: K85.90 Acute pancreatitis without necrosis or infection, unspecified (principal)
CPT/HCPCS: 36415; 76705; 76705-26; 80053; 80307; 83690; 85025; 99284; 99284-25

== ENCOUNTER 2019-10-15 06:33 | Day surgery (SDC) | payer MEDICAID ==
[~2019-10-15 06:33] MED LIST changes: -cefOXitin 2 GM in Premix Bag 1 BAG IV ONE
--- NOTE | 2019-10-15 07:16 | PCM.PREANE ---
Preanesthetic Assessment - Anesthesia/Transfusion/Family Hx Anesthesia History: Prior Anesthesia Without Reaction Family History of Anesthesia Reaction: No Transfusion History: No Prior Transfusion(s) - Review of Systems General: No Symptoms Pulmonary: No Symptoms Cardiovascular: No Symptoms Gastrointestinal: No Symptoms Neurological: No Symptoms Other: Reports: None - Physical Assessment NPO Status Date: 10/14/19 Height: 5 ft 8 in Weight: 84.822 kg ASA Class: 2 Mental Status: Alert & Oriented x3 Airway Class: Mallampati = 1 Dentition: Reports: Normal Dentition ROM/Head Extension: Full Lungs: Clear to Auscultation, Normal Respiratory Effort Cardiovascular: Regular Rate, Regular Rhythm - Allergies Allergies/Adverse Reactions: Allergies Allergy/AdvReac Type Severity Reaction Status Date / Time duran Allergy Itching Verified 10/09/19 11:02 - Blood Blood Available: No - Anesthesia Plan Pre-Op Medication Ordered: None - Acknowledgements Anesthesia Type Planned: General Anesthesia Pt an Appropriate Candidate for the Planned Anesthesia: Yes Alternatives and Risks of Anesthesia Discussed w Pt/Guardian: Yes Pt/Guardian Understands and Agrees with Anesthesia Plan: Yes PreAnesthesia Questionnaire - Past Health History Medical/Surgical History: Denies Medical/Surgical History HEENT History: Reports: Other (See Below) Other HEENT History: wears glasses Cardiovascular History: Reports: None Respiratory History: Reports: None Gastrointestinal History: Reports: Bowel Obstruction Genitourinary History: Reports: None Musculoskeletal History: Reports: None Neurological History: Reports: None Psychiatric History: Reports: None Endocrine/Metabolic History: Reports: None Hematologic History: Reports: None Oncologic (Cancer) History: Reports: None Dermatologic History: Reports: Other (See Below) Other Dermatologic History: 2 itchy spots on his leg that have been there for "years" - Infectious Disease History Infectious Disease History: Reports: None - Past Surgical History GI Surgical History: Reports: None Other Musculoskeletal Surgeries/Procedures:: had "something removed" from his hand - SUBSTANCE USE Smoking Status *Q: Never Smoker Recreational Drug Use History: No - HOME MEDS Home Medications: Home Meds Acetaminophen [Tylenol Extra Strength] 1,000 mg PO ASDIRECTED PRN 10/09/19 [ History] Ibuprofen 800 mg PO ASDIRECTED PRN 10/09/19 [History] - CURRENT (IN HOUSE) MEDS Current Meds: Current Medications Cefazolin Sodium/Dextrose 2 gm (/ Premix) 50 mls @ 100 mls/hr IV ONCALL SUPRIYA Lactated Ringer's (Ringers, Lactated) 1,000 mls @ 100 mls/hr IV ASDIRECTED SUPRIYA
[2019-10-15] MEDS ORDERED: Lidocaine 2% 5 ML SDV ONE (07:17)
[2019-10-15] MEDS ORDERED: Propofol 200 MG/20 ML SDV ONE (07:17)
[2019-10-15] MEDS ORDERED: fentaNYL 100 MCG/2 ML SDV ONE (07:17)
[2019-10-15] MEDS ORDERED: Midazolam 1 MG/ML 2 ML SDV ONE (07:17)
[2019-10-15] MEDS ORDERED: ceFAZolin/Dextrose,Iso-Osmotic 2 GM/50 ML Duplex Bag IV ONE (07:45)
[2019-10-15] MEDS ORDERED: Bupivacaine 0.5% 10 ML SDV ONE (07:46)
[2019-10-15] MEDS ORDERED: ceFAZolin 2 GM in Premix Bag 1 BAG IV SCH (08:00)
[2019-10-15] MEDS ORDERED: Ondansetron 4 MG/2 ML SDV ONE (08:25)
[2019-10-15] MEDS ORDERED: 50% Dextrose in Water 50 ML Syringe IVPUSH PRN (08:45)
[2019-10-15] MEDS ORDERED: Naloxone 0.4 MG/ML Syringe IVPUSH PRN (08:45)
[2019-10-15] MEDS ORDERED: EPINEPHrine 1:10,000 1 MG/10 ML Syringe IVPUSH PRN (08:45)
[2019-10-15] MEDS ORDERED: fentaNYL 100 MCG/2 ML SDV IVPUSH PRN (08:45)
[2019-10-15] MEDS ORDERED: Atropine 0.1 MG/ML 10 ML Syringe IVPUSH PRN ×2 (08:45)
[2019-10-15] MEDS ORDERED: Albuterol 0.083% 2.5 MG/3 ML Neb Soln NEB PRN (08:45)
[2019-10-15] MEDS ORDERED: Bupivacaine 0.5%/EPINEPHrine 1:200,000 10 ML SDV ONE (08:57)
[2019-10-15] MEDS ORDERED: Ketorolac 30 MG/ML SDV ONE (09:14)
[2019-10-15] MEDS ORDERED: Dexamethasone 4 MG/ML 5 ML MDV ONE (09:14)
--- NOTE | 2019-10-15 09:25 | PCM.OPNOTE ---
- General Post-Op/Procedure Note Date of Surgery/Procedure: 10/15/19 Operative Procedure(s): right knee arthroscopy. extensive synovectomy. partial medial menisectomy. 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
[2019-10-15] MEDS ORDERED: Acetaminophen/oxyCODONE 325-5 MG Tab PO ONE (10:52)
--- NOTE | 2019-10-15 10:55 | PCM.POSTAN ---
POST ANESTHESIA ASSESSMENT - MENTAL STATUS Mental Status: Alert, Oriented - VITAL SIGNS Vital Signs: Last Vital Signs Temp 97.3 F 10/15/19 09:27 Pulse 74 10/15/19 09:57 Resp 11 L 10/15/19 09:57 BP 134/81 10/15/19 09:57 Pulse Ox 93 L 10/15/19 09:57 - RESPIRATORY Respiratory Status: Respiratory Rate WNL, Airway Patent, O2 Saturation Stable - CARDIOVASCULAR CV Status: Pulse Rate WNL, Blood Pressure Stable - GASTROINTESTINAL GI Status: No Symptoms - POST OP HYDRATION Hydration Status: Adequate & Stable
--- NOTE | 2019-10-15 10:55 | PCM48HPAN ---
Post Anesthesia Note - EVALUATION WITHIN 48HRS OF ANESTHETIC Vital Signs in Normal Range: Yes Patient Participated in Evaluation: Yes Respiratory Function Stable: Yes Airway Patent: Yes Cardiovascular Function Stable: Yes Hydration Status Stable: Yes Pain Control Satisfactory: Yes Nausea and Vomiting Control Satisfactory: Yes Mental Status Recovered: Yes Vital Signs: Last Vital Signs Temp 97.3 F 10/15/19 09:27 Pulse 74 10/15/19 09:57 Resp 11 L 10/15/19 09:57 BP 134/81 10/15/19 09:57 Pulse Ox 93 L 10/15/19 09:57
--- NOTE | 2019-10-15 13:16 | OR ---
SURGEON: Angel Gaffney DATE OF PROCEDURE: 10/15/2019 PREOPERATIVE DIAGNOSES: Patellar chondromalacia and pigmented villonodular synovitis. POSTOPERATIVE DIAGNOSES: Patellar chondromalacia and pigmented villonodular synovitis plus partial medial meniscus tear. PROCEDURES: 1. Right knee arthroscopy. 2. Right partial synovectomy. 3. Right partial medial meniscectomy. 4. Patellar chondroplasty. PRIMARY SURGEON: Angel Gaffney DO RN SANE: BETH Fernández ROLE OF RN SANE: Nurse practitioner, BETH Fernández, played an essential role in assisting in this case, helping to position the patient, retract structures as needed, as well as suturing and cutting sutures as indicated. Her presence improved patient's safety and decreased operative time. ANESTHESIA: LMA, general. FLUID: Lactated Ringer's solution. ESTIMATED BLOOD LOSS: 10 mL. COMPLICATIONS: None. SPECIMEN: Synovial tissue. DISCHARGE DISPOSITION: Stable to PACU. HISTORY AND INDICATIONS FOR THE PROCEDURE: The patient was seen preoperatively in the clinic. He had failed nonoperative treatment. Preoperative MRI confirmed the above-mentioned preoperative diagnoses. Risks and goals of the procedure were explained to the patient. Informed consent was obtained. DETAILS OF PROCEDURE: The patient was seen preoperatively by myself and the Anesthesia staff in the preoperative holding area where the operative site was marked. He was brought to the operative suite by Anesthesia staff where general anesthesia was administered. A well-padded tourniquet was placed on the right lower extremity. All extremities were well padded. The right lower extremity was then prepped and draped in a sterile manner. Time-out was called identifying the correct patient, the correct procedure, the correct site, and that antibiotics had been given with appropriate period of time. The right lower extremity was exsanguinated. The knee was slightly flexed. Tourniquet was raised to 250 mmHg. A lateral portal was first made. This had a copious amount of hemosiderin stained synovial fluid. I then entered with the scope and then visualized that there was a pigmented villonodular synovitis throughout the synovium. There was a grade 4 patellar chondromalacia on the inferior portion of the patella. I then made a medial portal and entered with a shaver. I did considerable shaving for visualization. There was a partial medial meniscus tear, which was then shaved and ablated. Extensive time was taken for the partial synovectomy, which was extensive for the pigmented villonodular synovitis. No findings were found on the lateral compartment. Lateral meniscus was intact. Posterior medial meniscus was intact. No chondromalacia was visualized on the medial and lateral tibial plateau. I then extended the knee and then continued to do the extensive synovectomy. I then used a shaver and debrided an area where the chondromalacia of the patella was severe and then ablated it with my ablation unit. Our goals having been accomplished, we then removed the instruments. Please note that I did use a pituitary to grab some of the area of the pigmented villonodular synovitis and sent it for specimen. We then applied local with epinephrine and then my assist closed with 3-0 nylon horizontal mattress sutures. We then applied sterile dressings and an Dwaine wrap. The patient was allowed to awaken from general anesthesia and taken to the PACU in stable condition. [id number] / MODL /[id number]
== END 2019-10-15 11:55 | disposition home or self-care (01) ==
LOC: MW.SDS 06:33
PROVIDERS: ATTEND Orthopaedic Surgery
DX: S83.241A Other tear of medial meniscus, current injury, right knee, initial encounter (principal); M12.261 Villonodular synovitis (pigmented), right knee; M22.41 Chondromalacia patellae, right knee; K85.00 Idiopathic acute pancreatitis without necrosis or infection; M25.469 Effusion, unspecified knee; Z79.899 Other long term (current) drug therapy; X58.XXXA Exposure to other specified factors, initial encounter
CPT/HCPCS: 29881; A9270; J0690; J1100; J1885; J2001; J2250; J2405; J2704; J3010; J3490; J7120

== ENCOUNTER 2021-09-11 16:53 | Emergency (ER) | payer MEDICAID ==
[2021-09-11] MEDS ORDERED: Diphtheria,Pertussis(Acell),Tetanus Vaccine 0.5 ML Syringe IM ONE (17:40)
== END 2021-09-11 18:22 | disposition home or self-care (01) ==
LOC: MW.ED 16:53
DX: S91.331A Puncture wound without foreign body, right foot, initial encounter (principal); Z91.048 Other nonmedicinal substance allergy status; Z23 Encounter for immunization; W45.0XXA Nail entering through skin, initial encounter
CPT/HCPCS: 90471; 90715; 99282; 99283

== ENCOUNTER 2023-09-24 19:20 | Emergency (ER) | payer MEDICAID, OTHER ==
[2023-09-24] MEDS: Sodium Chloride 0.9% 2.5 ML Syringe FLUSH PRN (19:49)
[2023-09-24] MEDS: Sodium Chloride 0.9% 10 ML Syringe FLUSH PRN (19:49)
[2023-09-24] MEDS: Sodium Chloride 0.9% 1,000 ML IV ONE (19:49)
[2023-09-24 19:58] LABS: APPEARANCE,URINE CLEAR; BILIRUBIN,URINE NEGATIVE (NEGATIVE); COLOR,URINE YELLOW; GLUCOSE,URINE NEGATIVE (NEGATIVE); KETONES,URINE NEGATIVE (NEGATIVE); LEUKOCYTE ESTERASE,URINE NEGATIVE (NEGATIVE); NITRITE,URINE NEGATIVE (NEGATIVE); OCCULT BLOOD,URINE TRACE-INTACT (NEGATIVE); PROTEIN,URINE NEGATIVE (NEGATIVE); UROBILINOGEN,URINE 0.2 EU/dL (<2.0)
[2023-09-24 20:04] LABS: BASOPHILS ABSOLUTE AUTO 0.05 K/uL (0.00-0.20); BASOPHILS PERCENT AUTO 0.7 % (0.0-1.0); EOSINOPHILS ABSOLUTE AUTO 0.05 K/uL (0.00-0.45); EOSINOPHILS PERCENT AUTO 0.7 % (0.0-6.0); HEMATOCRIT 44.6 % (42.0-52.0); HEMOGLOBIN 15.2 g/dL (14.0-18.0); IMMATURE GRAN ABSOLUTE AUTO 0.03 K/uL (0.00-0.05); IMMATURE GRAN PERCENT AUTO 0.4 % (0.0-0.4); LYMPHOCYTES ABSOLUTE AUTO 1.77 K/uL (1.00-4.80); LYMPHOCYTES PERCENT AUTO 24.7 % (24.0-44.0); MEAN CORPUSCULAR HEMOGLOBIN 28.5 pg (28.0-32.0); MEAN CORPUSCULAR HGB CONC 34.1 g/dL (32.0-36.0); MEAN CORPUSCULAR VOLUME 83.5 fL (83.0-99.0); MEAN PLATELET VOLUME 9.6 fL (9.4-12.4); MONOCYTES ABSOLUTE AUTO 0.53 K/uL (0.00-0.80); MONOCYTES PERCENT AUTO 7.4 % (0.0-8.0); NEUTROPHILS ABSOLUTE AUTO 4.74 K/uL (1.80-7.70); NEUTROPHILS PERCENT AUTO 66.1 % (41.0-71.0); PLATELET COUNT,PLT 260 K/uL (150-400); RED BLOOD CELL COUNT 5.34 M/uL (4.52-5.90); WHITE BLOOD CELL COUNT,WBC 7.17 K/uL (3.9-11.3)
[2023-09-24 20:05] LABS: A/G RATIO 0.8 (0.9-1.6); ALBUMIN 3.6 g/dL (3.4-5.0); BILIRUBIN TOTAL 0.6 mg/dL (0.2-1.0); CALCIUM 9.3 mg/dL (8.5-10.1); CARBON DIOXIDE,CO2 28.3 mmol/L (21.0-32.0); CREATININE 1.5 mg/dL (0.8-1.3); EST CRCL DRUG DOSING (CG) 60.17 mL/min; POTASSIUM,K 3.9 mmol/L (3.5-5.1); PROTEIN TOTAL,TP 8.2 g/dL (6.4-8.2)
[2023-09-24 20:09] LABS: BACTERIA,URINE RARE (NEGATIVE); EPITHELIAL CELLS,URINE RARE (NONE-FEW); RBC,URINE 0-2 (0-2/HPF); WBC,URINE 0-1 (0-5/HPF)
[2023-09-24] MEDS: methylPREDNISolone Sodium Succinate 125 MG/2 ML SDV IVPUSH ONE (20:13)
[2023-09-24] MEDS: Famotidine 20 MG/2 ML SDV IVPUSH ONE (20:13)
[2023-09-24] MEDS: diphenhydrAMINE 50 MG/ML SDV IVPUSH ONE (20:13)
[2023-09-24] MEDS: Iopamidol 755 MG/ML 500 ML Multipack Bottle IVPUSH ONE (21:38)
[2023-09-25] MEDS: Apixaban 5 MG Tab PO STA (00:04)
== END 2023-09-25 00:30 | disposition home or self-care (01) ==
LOC: MW.ED 19:20
DX: I26.99 Other pulmonary embolism without acute cor pulmonale (principal); Z75.8 Other problems related to medical facilities and other health care; Z91.018 Allergy to other foods
CPT/HCPCS: 36415; 71275; 71275-26; 80053; 81001; 84484; 85025; 85379; 93005; 93010; 93970; 93970-26; 96361; 96374; 96375; 99284; 99285-25; A9270-GY; J1200; J2930; J3490; J7030; Q9967

== ENCOUNTER 2024-02-23 00:28 | Emergency (ER) | payer OTHER ==
[2024-02-23] MEDS: Acetaminophen 500 MG Tab PO ONE (00:59)
[2024-02-23 01:07] LABS: BASOPHILS ABSOLUTE AUTO 0.03 K/uL (0.00-0.20); BASOPHILS PERCENT AUTO 0.5 % (0.0-1.0); EOSINOPHILS ABSOLUTE AUTO 0.14 K/uL (0.00-0.45); EOSINOPHILS PERCENT AUTO 2.5 % (0.0-6.0); HEMATOCRIT 42.3 % (42.0-52.0); HEMOGLOBIN 13.8 g/dL (14.0-18.0); IMMATURE GRAN ABSOLUTE AUTO 0.02 K/uL (0.00-0.05); IMMATURE GRAN PERCENT AUTO 0.4 % (0.0-0.4); LYMPHOCYTES PERCENT AUTO 28.8 % (24.0-44.0); MEAN CORPUSCULAR HEMOGLOBIN 26.3 pg (28.0-32.0); MEAN CORPUSCULAR HGB CONC 32.6 g/dL (32.0-36.0); MEAN CORPUSCULAR VOLUME 80.6 fL (83.0-99.0); MEAN PLATELET VOLUME 9.3 fL (9.4-12.4); MONOCYTES ABSOLUTE AUTO 0.44 K/uL (0.00-0.80); MONOCYTES PERCENT AUTO 7.9 % (0.0-8.0); NEUTROPHILS ABSOLUTE AUTO 3.33 K/uL (1.80-7.70); NEUTROPHILS PERCENT AUTO 59.9 % (41.0-71.0); PLATELET COUNT,PLT 287 K/uL (150-400); RED BLOOD CELL COUNT 5.25 M/uL (4.52-5.90); WHITE BLOOD CELL COUNT,WBC 5.56 K/uL (3.9-11.3)
[2024-02-23 01:33] LABS: A/G RATIO 0.9 (0.9-1.6); ALANINE AMINOTRANSFERASE,ALT 35 IU/L (14-63); ALBUMIN 3.7 g/dL (3.4-5.0); ALKALINE PHOSPHATASE 148 U/L (46-116); ASPARTATE AMNIOTRANSFERASE,AST 18 IU/L (15-37); BILIRUBIN TOTAL 0.6 mg/dL (0.2-1.0); BLOOD UREA NITROGEN,BUN 24 mg/dL (7.0-18.0); CALCIUM 9.2 mg/dL (8.5-10.1); CARBON DIOXIDE,CO2 29.1 mmol/L (21.0-32.0); CHLORIDE,CL 101 mmol/L (98-107); CREATININE 1.6 mg/dL (0.8-1.3); EST CRCL DRUG DOSING (CG) 56.41 mL/min; GLUCOSE RANDOM 132 mg/dL (74-106); LIPASE 99 U/L (16-77); POTASSIUM,K 3.7 mmol/L (3.5-5.1); PROTEIN TOTAL,TP 7.8 g/dL (6.4-8.2); SODIUM,NA 140 mmol/L (136-148)
[2024-02-23 01:35] LABS: ESTIMATED GFR 54 mL/min (>60)
[2024-02-23] MEDS ORDERED: Cyclobenzaprine 10 MG Tab PO ONE (01:47)
[2024-02-23] MEDS ORDERED: Acetaminophen 500 MG Tab PO ONE (01:47)
== END 2024-02-23 01:56 | disposition home or self-care (01) ==
LOC: MW.ED 00:28
DX: R07.81 Pleurodynia (principal); Z91.018 Allergy to other foods; Z75.8 Other problems related to medical facilities and other health care
CPT/HCPCS: 36415; 71046; 80053; 83690; 84484; 85025; 93005; 99285; A9270; 93010; 99283

== ENCOUNTER 2024-07-11 09:48 | Day surgery (SDC) | payer MEDICAID, OTHER ==
[~2024-07-11 09:48] MED LIST changes: -Lactated Ringers 1,000 ML IV SCH; +Sodium Chloride 0.9% 10 ML Syringe FLUSH PRN; +Sodium Chloride 0.9% 2.5 ML Syringe FLUSH PRN; +Sodium Chloride 0.9% 20 ML SDV IV PRN
[2024-07-11] MEDS: Lactated Ringers 1,000 ML IV SCH (10:19)
[2024-07-11] MEDS ORDERED: propofoL 500 MG/50 ML 50 ML ONE (10:51)
[2024-07-11] MEDS ORDERED: Lidocaine 2% 5 ML SDV ONE (10:51)
== END 2024-07-11 12:45 | disposition home or self-care (01) ==
LOC: MW.SDS 09:48
PROVIDERS: ATTEND Surgery
DX: D12.3 Benign neoplasm of transverse colon (principal); K62.1 Rectal polyp; E66.9 Obesity, unspecified; Z68.31 Body mass index [BMI] 31.0-31.9, adult; Z79.01 Long term (current) use of anticoagulants; Z79.899 Other long term (current) drug therapy
CPT/HCPCS: 45380; 45385; J2003; J2704; J7120; 00811